=== PATIENT | male | born 1955 | race Hispanic/Latino ===

== ENCOUNTER 2021-09-07 12:13 | Inpatient (IN) | payer MEDICARE, MEDICAID ==
[2021-09-07 12:51] LABS: #Basophils 0.1 thou/uL (0.0-0.2); #Eosinphils 0.1 thou/uL (0.0-0.7); #Lymphocytes 2.2 thou/uL (1.20-3.40); #Monocytes 1.1 thou/uL (0.11-0.59); #Neutrophils 9.8 thou/uL (1.40-6.50); %Basophils 0.7 % (0.0-1.0); %Eosinophils 1.1 % (0.0-10.0); %Lymphocytes 16.3 % (21.0-51.0); %Monocytes 8.5 % (0.0-10.0); %Neutrophils 73.4 % (42.0-75.0); Hemoglobin 12.5 g/dL (14.0-18.0); Mean Corpuscular HGB CONC 32.6 g/dL (32.0-36.0); Mean Corpuscular Hemoglobin 28.2 pg (27.0-31.0); Mean Corpuscular Volume 86.4 fL (78.0-98.0); Mean Platelet Volume 8.8 fL (7.4-10.4); Platelet Count 252 thou/uL (130-400); RBC Distribution Width 12.7 % (11.5-14.5); Red Blood Cell (RBC) Count 4.42 mill/uL (4.70-6.10); White Blood Cell (WBC) Count 13.3 thou/uL (4.8-10.8)
[2021-09-07 13:08] LABS: ALT (SGPT) 11 U/L (8-55); AST (SGOT) 11 U/L (5-34); Albumin 4.1 g/dL (3.4-4.8); Alkaline Phosphatase 86 U/L (40-110); Anion Gap 18 mmol/L (10-20); BUN (Urea Nitrogen) 42 mg/dL (8.4-25.7); Bilirubin, Total 0.6 mg/dL (0.2-1.2); Calc. Creatinine Clearance 0 mL/min (70-130); Calcium 10.1 mg/dL (7.8-10.44); Carbon Dioxide 25 mmol/L (23-31); Chloride 103 mmol/L (98-107); Globulin 3.6 g/dL (2.4-3.5); Glucose 143 mg/dL (80-115); Magnesium 1.8 mg/dL (1.6-2.6); Protein, Total 7.7 g/dL (5.8-8.1); Sodium 142 mmol/L (136-145)
[2021-09-07 13:31] LABS: CKMB 2.2 ng/mL (0-6.6)
[2021-09-07] MEDS ORDERED: Nitroglycerin 2% Ointment 1 INCH/1 GM Packet ONE (15:24)
[2021-09-07 18:45] LABS: Troponin I 0.072 ng/mL (< 0.028)
[2021-09-07 20:52] VITALS: BMI 19.8
[2021-09-07 21:30] LABS: Troponin I 0.066 ng/mL (< 0.028)
[2021-09-07] MEDS ORDERED: hydrALAZINE 20 MG/ML VIAL SLOW IVP PRN (21:58)
[2021-09-07] MEDS ORDERED: Ondansetron ODT 4 MG TAB PO PRN (21:59)
[2021-09-07] MEDS ORDERED: Ondansetron PF 4 MG/2 ML Vial IVP PRN (21:59)
[2021-09-07] MEDS ORDERED: Acetaminophen 650 MG Suppository PR PRN (21:59)
[2021-09-07] MEDS ORDERED: Electrolyte Replacement Protocol 1 EACH FS SCH (22:15)
[2021-09-07] MEDS ORDERED: Magnesium 2 GM/50 ML 2 GM in Premix Bag 1 BAG IVPB SCH (22:15)
[2021-09-07] MEDS: Sodium Chloride 0.9% 1,000 ML IV SCH (23:23)
[2021-09-07 23:59] LABS: Bacteria/HPF None Seen HPF (None Seen); Bilirubin Negative (Negative); Blood, Urine 1+ (Negative); Clarity Clear (Clear); Glucose, Urine (Dipstick) Normal (Negative); Ketone, Urine Negative (Negative); Leukocyte Negative Leu/uL (Negative); Nitrite Negative (Negative); Protein, Urine (Dipstick) 100 mg/dL (Neg-Trace); Specific Gravity, Urine 1.016 (1.002-1.036); Squamous Epithelial None Seen HPF (0-3); Urobilinogen Normal mg/dL (Less than 2); WBC/HPF 0-3 HPF (0-3)
[2021-09-08 00:02] LABS: Urine Culture Reflex No No
[2021-09-08] MEDS ORDERED: Dextrose 5% in Water 1,000 ML IV PRN (01:01)
[2021-09-08] MEDS ORDERED: Dextrose 50% Abboject 50 ML SYRINGE SLOW IVP PRN (01:01)
[2021-09-08 05:07] LABS: #Eosinphils 0.2 thou/uL (0.0-0.7); #Lymphocytes 1.6 thou/uL (1.20-3.40); #Monocytes 0.7 thou/uL (0.11-0.59); #Neutrophils 6.9 thou/uL (1.40-6.50); %Basophils 0.5 % (0.0-1.0); %Eosinophils 1.6 % (0.0-10.0); %Lymphocytes 17.2 % (21.0-51.0); %Monocytes 7.4 % (0.0-10.0); %Neutrophils 73.3 % (42.0-75.0); Hemoglobin 11.2 g/dL (14.0-18.0); Mean Corpuscular HGB CONC 33.1 g/dL (32.0-36.0); Mean Corpuscular Hemoglobin 28.5 pg (27.0-31.0); Mean Corpuscular Volume 86.1 fL (78.0-98.0); Mean Platelet Volume 8.4 fL (7.4-10.4); Platelet Count 197 thou/uL (130-400); RBC Distribution Width 12.6 % (11.5-14.5); Red Blood Cell (RBC) Count 3.91 mill/uL (4.70-6.10); White Blood Cell (WBC) Count 9.4 thou/uL (4.8-10.8)
[2021-09-08 05:30] LABS: Anion Gap 14 mmol/L (10-20); BUN (Urea Nitrogen) 39 mg/dL (8.4-25.7); Calc. Creatinine Clearance 33 mL/min (70-130); Calcium 9.3 mg/dL (7.8-10.44); Carbon Dioxide 26 mmol/L (23-31); Chloride 105 mmol/L (98-107); Glucose 200 mg/dL (80-115); Potassium 3.6 mmol/L (3.5-5.1); Sodium 141 mmol/L (136-145)
[2021-09-08 07:34] LABS: Creatinine, Urine 89.08 mg/dL (63-166)
[2021-09-08] MEDS: Sodium Chloride 0.9% 1,000 ML IV SCH ×2 (10:28→12:02)
[2021-09-08 11:57] LABS: Digoxin 1.34 ng/mL (0.8-2.0)
[2021-09-08] MEDS: hydrALAZINE 20 MG/ML VIAL SLOW IVP PRN ×2 (11:58→19:33)
[2021-09-08] MEDS ORDERED: hydrALAZINE 20 MG/ML VIAL SLOW IVP SCH (13:45)
[2021-09-08 13:58] LABS: SARS-CoV-2 PCR by NAA Not Detected (NotDetected)
[2021-09-08] MEDS ORDERED: Amlodipine 5 MG TAB PO SCH (15:00)
[2021-09-08] MEDS: busPIRone HCl 10 MG TAB PO SCH ×2 (15:00→21:22)
[2021-09-08] MEDS: Artificial Tear Sol 15 ML BOT EA EYE SCH ×2 (15:01→21:22)
[2021-09-08] MEDS: HumaLOG 300 UNITS/3 ML VIAL SC PRN ×2 (18:27→21:24)
[2021-09-08] MEDS: Lantus 1000 UNITS/10 ML VIAL SC SCH (21:22)
[2021-09-08] MEDS: Acetaminophen 325 MG TAB PO PRN (21:23)
[2021-09-08] MEDS: NIFEdipine XL 60 MG TAB PO SCH (21:23)
[2021-09-09] MEDS: Sodium Chloride 0.9% 1,000 ML IV SCH ×2 (01:35→14:50)
[2021-09-09 05:35] LABS: #Eosinphils 0.2 thou/uL (0.0-0.7); #Monocytes 0.9 thou/uL (0.11-0.59); #Neutrophils 5.9 thou/uL (1.40-6.50); %Basophils 0.2 % (0.0-1.0); %Lymphocytes 22.2 % (21.0-51.0); %Monocytes 9.8 % (0.0-10.0); %Neutrophils 65.9 % (42.0-75.0); Hemoglobin 11.7 g/dL (14.0-18.0); Mean Corpuscular HGB CONC 34.3 g/dL (32.0-36.0); Mean Corpuscular Hemoglobin 30.1 pg (27.0-31.0); Mean Corpuscular Volume 87.8 fL (78.0-98.0); Mean Platelet Volume 8.6 fL (7.4-10.4); Platelet Count 182 thou/uL (130-400); RBC Distribution Width 12.9 % (11.5-14.5); Red Blood Cell (RBC) Count 3.89 mill/uL (4.70-6.10); White Blood Cell (WBC) Count 8.9 thou/uL (4.8-10.8)
[2021-09-09 06:06] LABS: Anion Gap 13 mmol/L (10-20); BUN (Urea Nitrogen) 34 mg/dL (8.4-25.7); Calc. Creatinine Clearance 39 mL/min (70-130); Calcium 9.2 mg/dL (7.8-10.44); Carbon Dioxide 24 mmol/L (23-31); Chloride 106 mmol/L (98-107); Glucose 196 mg/dL (80-115); Potassium 3.8 mmol/L (3.5-5.1); Sodium 139 mmol/L (136-145)
[2021-09-09] MEDS: HumaLOG 300 UNITS/3 ML VIAL SC PRN ×3 (06:14→20:12)
[2021-09-09] MEDS: Artificial Tear Sol 15 ML BOT EA EYE SCH ×3 (08:35→20:24)
[2021-09-09] MEDS: NIFEdipine XL 60 MG TAB PO SCH ×2 (08:35→20:11)
[2021-09-09] MEDS: Lantus 1000 UNITS/10 ML VIAL SC SCH ×2 (08:35→20:12)
[2021-09-09] MEDS: Finasteride 5 MG TAB PO SCH (08:36)
[2021-09-09] MEDS: busPIRone HCl 10 MG TAB PO SCH ×3 (08:36→20:11)
[2021-09-09] MEDS: Cholecalciferol 1,000 UNITS (25 MCG) TAB PO SCH (08:36)
[2021-09-09] MEDS ORDERED: Amlodipine 5 MG TAB PO SCH ×2 (09:00)
[2021-09-09] MEDS: Mirtazapine 15 MG Soltab PO SCH (09:25)
[2021-09-09] MEDS ORDERED: Rivaroxaban 15 MG TAB PO SCH (17:00)
[2021-09-10] MEDS ORDERED: ceFAZolin Sodium/D5W 2 GM in Premix Bag 1 BAG IVPB SCH (00:30)
[2021-09-10] MEDS: Sodium Chloride 0.9% 1,000 ML IV SCH (04:45)
[2021-09-10 05:31] LABS: #Eosinphils 0.1 thou/uL (0.0-0.7); #Lymphocytes 1.6 thou/uL (1.20-3.40); #Monocytes 0.9 thou/uL (0.11-0.59); #Neutrophils 10.1 thou/uL (1.40-6.50); %Basophils 0.3 % (0.0-1.0); %Lymphocytes 12.4 % (21.0-51.0); %Neutrophils 79.3 % (42.0-75.0); Hemoglobin 11.8 g/dL (14.0-18.0); Mean Corpuscular HGB CONC 31.1 g/dL (32.0-36.0); Mean Corpuscular Hemoglobin 26.8 pg (27.0-31.0); Mean Corpuscular Volume 86.2 fL (78.0-98.0); Mean Platelet Volume 8.5 fL (7.4-10.4); Platelet Count 235 thou/uL (130-400); Red Blood Cell (RBC) Count 4.42 mill/uL (4.70-6.10); White Blood Cell (WBC) Count 12.8 thou/uL (4.8-10.8)
[2021-09-10 05:51] LABS: Anion Gap 16 mmol/L (10-20); BUN (Urea Nitrogen) 28 mg/dL (8.4-25.7); Calc. Creatinine Clearance 40 mL/min (70-130); Calcium 9.5 mg/dL (7.8-10.44); Carbon Dioxide 21 mmol/L (23-31); Chloride 108 mmol/L (98-107); Glucose 294 mg/dL (80-115); Potassium 3.9 mmol/L (3.5-5.1); Sodium 141 mmol/L (136-145)
[2021-09-10] MEDS ORDERED: ceFAZolin 2 GM/DEX 5% 100 ML BAG ONE (08:15)
[2021-09-10] MEDS ORDERED: CEFAZOLIN 1 GM VIAL ONE (08:15)
[2021-09-10] MEDS ORDERED: Gentamicin 80 MG/2 ML VIAL ONE (08:15)
[2021-09-10] MEDS ORDERED: Fentanyl 100 MCG/2 ML VIAL ONE (08:29)
[2021-09-10] MEDS ORDERED: Midazolam HCl 2 mg/2 ml Vial ONE (08:30)
[2021-09-10] MEDS: Artificial Tear Sol 15 ML BOT EA EYE SCH ×2 (09:46→15:11)
[2021-09-10] MEDS: NIFEdipine XL 60 MG TAB PO SCH ×2 (09:46→23:12)
[2021-09-10] MEDS: Finasteride 5 MG TAB PO SCH (09:47)
[2021-09-10] MEDS: Sodium Bicarbonate Tab 325 MG TAB PO SCH ×2 (09:48→23:12)
[2021-09-10] MEDS: Cholecalciferol 1,000 UNITS (25 MCG) TAB PO SCH (09:50)
[2021-09-10] MEDS: busPIRone HCl 10 MG TAB PO SCH ×3 (09:54→23:12)
[2021-09-10] MEDS: Mirtazapine 15 MG Soltab PO SCH (09:54)
[2021-09-10] MEDS: Lantus 1000 UNITS/10 ML VIAL SC SCH (10:14)
[2021-09-10] MEDS: HumaLOG 300 UNITS/3 ML VIAL SC PRN (10:50)
[2021-09-10] MEDS: hydrALAZINE 20 MG/ML VIAL SLOW IVP PRN (10:53)
[2021-09-10] MEDS: Acetaminophen 325 MG TAB PO PRN (12:17)
[2021-09-10] MEDS ORDERED: cloNIDine 0.1 MG TAB PO PRN ×2 (13:03→13:04)
[2021-09-10] MEDS: Metoprolol Tartrate 50 MG TAB PO SCH (18:04)
[2021-09-11] MEDS: Lantus 1000 UNITS/10 ML VIAL SC SCH ×3 (00:03→20:54)
[2021-09-11] MEDS: Artificial Tear Sol 15 ML BOT EA EYE SCH ×4 (00:04→20:55)
[2021-09-11] MEDS ORDERED: Cefepime 2 GM in Sodium Chloride 0.9% 100 ML IVPB SCH (01:00)
[2021-09-11 05:51] LABS: #Lymphocytes 1.4 thou/uL (1.20-3.40); #Monocytes 1.1 thou/uL (0.11-0.59); #Neutrophils 10.8 thou/uL (1.40-6.50); %Basophils 0.3 % (0.0-1.0); %Eosinophils 0.3 % (0.0-10.0); %Lymphocytes 10.6 % (21.0-51.0); %Monocytes 8.3 % (0.0-10.0); %Neutrophils 80.5 % (42.0-75.0); Hemoglobin 11.6 g/dL (14.0-18.0); Mean Corpuscular HGB CONC 32.1 g/dL (32.0-36.0); Mean Corpuscular Hemoglobin 27.9 pg (27.0-31.0); Mean Corpuscular Volume 86.9 fL (78.0-98.0); Mean Platelet Volume 8.6 fL (7.4-10.4); Platelet Count 204 thou/uL (130-400); RBC Distribution Width 13.2 % (11.5-14.5); Red Blood Cell (RBC) Count 4.16 mill/uL (4.70-6.10); White Blood Cell (WBC) Count 13.4 thou/uL (4.8-10.8)
[2021-09-11 06:19] LABS: Anion Gap 12 mmol/L (10-20); BUN (Urea Nitrogen) 27 mg/dL (8.4-25.7); Calc. Creatinine Clearance 39 mL/min (70-130); Calcium 9.1 mg/dL (7.8-10.44); Carbon Dioxide 24 mmol/L (23-31); Chloride 108 mmol/L (98-107); Glucose 181 mg/dL (80-115); Potassium 3.6 mmol/L (3.5-5.1); Sodium 140 mmol/L (136-145)
[2021-09-11] MEDS: HumaLOG 300 UNITS/3 ML VIAL SC PRN ×3 (06:24→20:55)
[2021-09-11] MEDS: Rivaroxaban 10 MG TAB PO SCH (06:24)
[2021-09-11] MEDS: Cefepime 2 GM in Sodium Chloride 0.9% 100 ML IVPB SCH ×2 (08:53→20:41)
[2021-09-11] MEDS: Mirtazapine 15 MG Soltab PO SCH (08:54)
[2021-09-11] MEDS: Sodium Bicarbonate Tab 325 MG TAB PO SCH ×2 (08:54→20:54)
[2021-09-11] MEDS: NIFEdipine XL 60 MG TAB PO SCH ×2 (08:54→20:54)
[2021-09-11] MEDS: Cholecalciferol 1,000 UNITS (25 MCG) TAB PO SCH (08:54)
[2021-09-11] MEDS: Finasteride 5 MG TAB PO SCH (08:55)
[2021-09-11] MEDS: Metoprolol Tartrate 50 MG TAB PO SCH ×2 (08:55→20:42)
[2021-09-11] MEDS: busPIRone HCl 10 MG TAB PO SCH ×3 (08:55→20:42)
[2021-09-11] MEDS: Acetaminophen 325 MG TAB PO PRN (11:33)
[2021-09-12 05:24] LABS: #Eosinphils 0.1 thou/uL (0.0-0.7); #Lymphocytes 1.9 thou/uL (1.20-3.40); #Monocytes 0.9 thou/uL (0.11-0.59); #Neutrophils 7.9 thou/uL (1.40-6.50); %Basophils 0.2 % (0.0-1.0); %Eosinophils 1.1 % (0.0-10.0); %Lymphocytes 17.5 % (21.0-51.0); %Monocytes 8.6 % (0.0-10.0); %Neutrophils 72.6 % (42.0-75.0); Hemoglobin 9.3 g/dL (14.0-18.0); Mean Corpuscular HGB CONC 31.9 g/dL (32.0-36.0); Mean Corpuscular Hemoglobin 27.9 pg (27.0-31.0); Mean Corpuscular Volume 87.6 fL (78.0-98.0); Mean Platelet Volume 8.2 fL (7.4-10.4); Platelet Count 159 thou/uL (130-400); RBC Distribution Width 13.1 % (11.5-14.5); Red Blood Cell (RBC) Count 3.33 mill/uL (4.70-6.10); White Blood Cell (WBC) Count 10.8 thou/uL (4.8-10.8)
[2021-09-12 05:49] LABS: Anion Gap 12 mmol/L (10-20); BUN (Urea Nitrogen) 34 mg/dL (8.4-25.7); Calc. Creatinine Clearance 32 mL/min (70-130); Calcium 8.7 mg/dL (7.8-10.44); Carbon Dioxide 25 mmol/L (23-31); Chloride 107 mmol/L (98-107); Glucose 124 mg/dL (80-115); Potassium 3.2 mmol/L (3.5-5.1); Sodium 141 mmol/L (136-145)
[2021-09-12] MEDS: Rivaroxaban 10 MG TAB PO SCH (06:24)
[2021-09-12] MEDS ORDERED: Potassium Chloride 20 MEQ TAB PO SCH (07:00)
[2021-09-12] MEDS: Cefepime 2 GM in Sodium Chloride 0.9% 100 ML IVPB SCH ×2 (08:53→21:19)
[2021-09-12] MEDS: Artificial Tear Sol 15 ML BOT EA EYE SCH ×3 (08:53→21:18)
[2021-09-12] MEDS: Lantus 1000 UNITS/10 ML VIAL SC SCH ×2 (08:54→21:19)
[2021-09-12] MEDS: NIFEdipine XL 60 MG TAB PO SCH ×2 (08:58→21:17)
[2021-09-12] MEDS: Mirtazapine 15 MG Soltab PO SCH (08:59)
[2021-09-12] MEDS: Metoprolol Tartrate 50 MG TAB PO SCH ×2 (09:00→21:17)
[2021-09-12] MEDS: Sodium Bicarbonate Tab 325 MG TAB PO SCH ×2 (09:01→21:18)
[2021-09-12] MEDS: Cholecalciferol 1,000 UNITS (25 MCG) TAB PO SCH (09:01)
[2021-09-12] MEDS: busPIRone HCl 10 MG TAB PO SCH ×3 (09:01→21:18)
[2021-09-12] MEDS: Finasteride 5 MG TAB PO SCH (09:02)
[2021-09-12 10:08] LABS: Creatinine, Urine 187.95 mg/dL (63-166)
[2021-09-12] MEDS: HumaLOG 300 UNITS/3 ML VIAL SC PRN ×3 (11:45→21:37)
[2021-09-12] MEDS ORDERED: Lactated Ringer's 1,000 ML IV SCH (12:00)
[2021-09-12 17:38] LABS: Metanephrine,Plasma <10.0 pg/mL (0.0-88.0); Normetanephrine,Pl 47.6 pg/mL (0.0-285.2)
[2021-09-12 21:31] LABS: Actual Bicarbonate (HCO3a) 24.1 mEq/L (22-28); Base Excess (BEa) 2.3 mEq/L (-2.0 to +3.0); CO2 Tension 29.8 mmHg (35.0-45.0); Calcium, Ionized (arterial) 1.13 mmol/L (1.12-1.30); Carboxyhemoglobin (COHb) 0.8 gm% (0.0-3.0); Hemoglobin (Hb) 14.1 g/dL (14.0-18.0); Potassium - ABG Lab 3.83 mmol/L (3.70-5.30); pH, Arterial 7.53 (7.35-7.45)
[2021-09-12 21:31] LABS: #Eosinphils 0.2 thou/uL (0.0-0.7); #Lymphocytes 1.1 thou/uL (1.20-3.40); #Monocytes 0.8 thou/uL (0.11-0.59); #Neutrophils 10.8 thou/uL (1.40-6.50); %Basophils 0.3 % (0.0-1.0); %Eosinophils 1.5 % (0.0-10.0); %Lymphocytes 8.2 % (21.0-51.0); %Monocytes 6.5 % (0.0-10.0); %Neutrophils 83.5 % (42.0-75.0); Hemoglobin 10.2 g/dL (14.0-18.0); Mean Corpuscular HGB CONC 31.8 g/dL (32.0-36.0); Mean Corpuscular Hemoglobin 28.1 pg (27.0-31.0); Mean Corpuscular Volume 88.3 fL (78.0-98.0); Mean Platelet Volume 8.3 fL (7.4-10.4); Platelet Count 172 thou/uL (130-400); RBC Distribution Width 12.9 % (11.5-14.5); Red Blood Cell (RBC) Count 3.62 mill/uL (4.70-6.10); White Blood Cell (WBC) Count 12.9 thou/uL (4.8-10.8)
[2021-09-12 21:34] LABS: O2 Tension (PaO2), arterial 51.7 mmHg (> 80.0)
[2021-09-12 21:36] LABS: Puncture Site RRA
[2021-09-12 21:50] LABS: Anion Gap 13 mmol/L (10-20); BUN (Urea Nitrogen) 42 mg/dL (8.4-25.7); Calc. Creatinine Clearance 34 mL/min (70-130); Calcium 8.7 mg/dL (7.8-10.44); Carbon Dioxide 23 mmol/L (23-31); Chloride 104 mmol/L (98-107); Glucose 282 mg/dL (80-115); Potassium 3.9 mmol/L (3.5-5.1); Sodium 136 mmol/L (136-145)
[2021-09-12] MEDS ORDERED: methylPREDNISolone Sod Succ/PF 125 MG/2 ML VIAL IVP SCH (22:30)
[2021-09-13] MEDS: Rivaroxaban 10 MG TAB PO SCH (06:52)
[2021-09-13] MEDS: HumaLOG 300 UNITS/3 ML VIAL SC PRN ×2 (06:53→18:56)
[2021-09-13] MEDS: Cefepime 2 GM in Sodium Chloride 0.9% 100 ML IVPB SCH ×2 (09:55→21:13)
[2021-09-13] MEDS: Artificial Tear Sol 15 ML BOT EA EYE SCH ×3 (09:57→21:13)
[2021-09-13] MEDS: NIFEdipine XL 60 MG TAB PO SCH ×2 (09:58→21:13)
[2021-09-13] MEDS: Cholecalciferol 1,000 UNITS (25 MCG) TAB PO SCH (09:58)
[2021-09-13] MEDS: Metoprolol Tartrate 50 MG TAB PO SCH ×2 (09:58→21:13)
[2021-09-13] MEDS: busPIRone HCl 10 MG TAB PO SCH ×3 (09:58→21:13)
[2021-09-13] MEDS: Finasteride 5 MG TAB PO SCH (09:58)
[2021-09-13] MEDS: Lantus 1000 UNITS/10 ML VIAL SC SCH ×2 (09:59→21:14)
[2021-09-13] MEDS: Mirtazapine 15 MG Soltab PO SCH (09:59)
[2021-09-13] MEDS: Sodium Bicarbonate Tab 325 MG TAB PO SCH ×2 (09:59→21:14)
[2021-09-13] MEDS ORDERED: Furosemide 40 MG/4 ML VIAL IVP SCH (14:03)
[2021-09-13 15:04] LABS: Anion Gap 17 mmol/L (10-20); BUN (Urea Nitrogen) 53 mg/dL (8.4-25.7); Calc. Creatinine Clearance 32 mL/min (70-130); Calcium 9.1 mg/dL (7.8-10.44); Carbon Dioxide 20 mmol/L (23-31); Chloride 104 mmol/L (98-107); Glucose 319 mg/dL (80-115); Sodium 137 mmol/L (136-145)
[2021-09-13 18:12] LABS: Metanephrine,Ur 27 ug/L (Undefined); Metanephrines Total-24H 33 ug/24 hr (58-276); Normetanephrine,Ur 133 ug/L (Undefined); Normetanephrines-24H U 163 ug/24 hr (156-729)
[2021-09-14 03:57] LABS: #Lymphocytes 1.2 thou/uL (1.20-3.40); #Monocytes 0.9 thou/uL (0.11-0.59); #Neutrophils 9.3 thou/uL (1.40-6.50); %Basophils 0.2 % (0.0-1.0); %Eosinophils 0.2 % (0.0-10.0); %Lymphocytes 10.3 % (21.0-51.0); %Monocytes 7.8 % (0.0-10.0); %Neutrophils 81.5 % (42.0-75.0); Hemoglobin 10.1 g/dL (14.0-18.0); Mean Corpuscular HGB CONC 32.7 g/dL (32.0-36.0); Mean Corpuscular Hemoglobin 28.8 pg (27.0-31.0); Mean Corpuscular Volume 88.1 fL (78.0-98.0); Mean Platelet Volume 8.9 fL (7.4-10.4); Platelet Count 201 thou/uL (130-400); RBC Distribution Width 12.7 % (11.5-14.5); Red Blood Cell (RBC) Count 3.51 mill/uL (4.70-6.10); White Blood Cell (WBC) Count 11.4 thou/uL (4.8-10.8)
[2021-09-14 04:38] LABS: Anion Gap 14 mmol/L (10-20); BUN (Urea Nitrogen) 56 mg/dL (8.4-25.7); Calc. Creatinine Clearance 35 mL/min (70-130); Carbon Dioxide 24 mmol/L (23-31); Chloride 104 mmol/L (98-107); Glucose 217 mg/dL (80-115); Potassium 3.6 mmol/L (3.5-5.1); Sodium 138 mmol/L (136-145)
[2021-09-14] MEDS: Rivaroxaban 10 MG TAB PO SCH (06:39)
[2021-09-14] MEDS ORDERED: Furosemide 40 MG/4 ML VIAL SLOW IVP SCH (08:15)
[2021-09-14] MEDS: Artificial Tear Sol 15 ML BOT EA EYE SCH ×3 (09:29→21:10)
[2021-09-14] MEDS: Cefepime 2 GM in Sodium Chloride 0.9% 100 ML IVPB SCH ×2 (09:29→21:10)
[2021-09-14] MEDS: Lantus 1000 UNITS/10 ML VIAL SC SCH ×2 (09:30→21:11)
[2021-09-14 11:23] LABS: SARS-CoV-2 PCR by NAA Not Detected (NotDetected)
[2021-09-14] MEDS: Metoprolol Tartrate 50 MG TAB PO SCH ×2 (11:25→21:10)
[2021-09-14] MEDS: Cholecalciferol 1,000 UNITS (25 MCG) TAB PO SCH (11:26)
[2021-09-14] MEDS: NIFEdipine XL 60 MG TAB PO SCH ×2 (11:27→21:11)
[2021-09-14] MEDS: busPIRone HCl 10 MG TAB PO SCH ×3 (11:27→21:11)
[2021-09-14] MEDS: Sodium Bicarbonate Tab 325 MG TAB PO SCH ×2 (11:27→21:11)
[2021-09-14] MEDS: Mirtazapine 15 MG Soltab PO SCH (12:41)
[2021-09-14] MEDS: Finasteride 5 MG TAB PO SCH (12:41)
[2021-09-15] MEDS: Rivaroxaban 10 MG TAB PO SCH (05:05)
[2021-09-15] MEDS: HumaLOG 300 UNITS/3 ML VIAL SC PRN (06:25)
[2021-09-15 06:56] LABS: Albumin 3.1 g/dL (3.4-4.8); Anion Gap 12 mmol/L (10-20); BUN (Urea Nitrogen) 54 mg/dL (8.4-25.7); BUN/Creatinine Ratio 27.98; Calc. Creatinine Clearance 38 mL/min (70-130); Calcium 8.9 mg/dL (7.8-10.44); Carbon Dioxide 28 mmol/L (23-31); Chloride 103 mmol/L (98-107); Glucose 219 mg/dL (80-115); Phosphorus 3.7 mg/dL (2.3-4.7); Potassium 3.6 mmol/L (3.5-5.1); Sodium 139 mmol/L (136-145)
[2021-09-15] MEDS: Mirtazapine 15 MG Soltab PO SCH (09:12)
[2021-09-15] MEDS: NIFEdipine XL 60 MG TAB PO SCH ×2 (09:12→21:49)
[2021-09-15] MEDS: Cholecalciferol 1,000 UNITS (25 MCG) TAB PO SCH (09:12)
[2021-09-15] MEDS: Finasteride 5 MG TAB PO SCH (09:12)
[2021-09-15] MEDS: Artificial Tear Sol 15 ML BOT EA EYE SCH ×3 (09:12→21:49)
[2021-09-15] MEDS: Metoprolol Tartrate 50 MG TAB PO SCH ×2 (09:12→21:49)
[2021-09-15] MEDS: busPIRone HCl 10 MG TAB PO SCH ×3 (09:13→21:49)
[2021-09-15] MEDS: Sodium Bicarbonate Tab 325 MG TAB PO SCH ×2 (09:13→21:49)
[2021-09-15] MEDS: Cefepime 2 GM in Sodium Chloride 0.9% 100 ML IVPB SCH ×2 (09:13→21:48)
[2021-09-15] MEDS: Lantus 1000 UNITS/10 ML VIAL SC SCH ×2 (09:14→21:42)
[2021-09-15 09:39] LABS: 5 HIAA,Urine 2.4 mg/L (Undefined); 5 HIAA-24H Urine 2.9 mg/24 hr (0.0-14.9)
[2021-09-15] MEDS ORDERED: Furosemide 40 MG/4 ML VIAL SLOW IVP SCH (22:00)
[2021-09-16 05:09] LABS: #Eosinphils 0.3 thou/uL (0.0-0.7); #Lymphocytes 1.6 thou/uL (1.20-3.40); #Monocytes 0.8 thou/uL (0.11-0.59); #Neutrophils 5.4 thou/uL (1.40-6.50); %Basophils 0.5 % (0.0-1.0); %Eosinophils 3.6 % (0.0-10.0); %Lymphocytes 19.3 % (21.0-51.0); %Monocytes 9.9 % (0.0-10.0); %Neutrophils 66.6 % (42.0-75.0); Hemoglobin 10.1 g/dL (14.0-18.0); Mean Corpuscular HGB CONC 31.9 g/dL (32.0-36.0); Mean Corpuscular Hemoglobin 28.1 pg (27.0-31.0); Mean Platelet Volume 8.5 fL (7.4-10.4); Platelet Count 230 thou/uL (130-400); RBC Distribution Width 12.9 % (11.5-14.5); Red Blood Cell (RBC) Count 3.62 mill/uL (4.70-6.10)
[2021-09-16] MEDS: Rivaroxaban 10 MG TAB PO SCH (05:13)
[2021-09-16 05:28] LABS: Albumin 3.1 g/dL (3.4-4.8); Anion Gap 13 mmol/L (10-20); BUN (Urea Nitrogen) 48 mg/dL (8.4-25.7); BUN/Creatinine Ratio 24.12; Calc. Creatinine Clearance 37 mL/min (70-130); Carbon Dioxide 29 mmol/L (23-31); Chloride 103 mmol/L (98-107); Glucose 269 mg/dL (80-115); Phosphorus 3.5 mg/dL (2.3-4.7); Potassium 3.6 mmol/L (3.5-5.1); Sodium 141 mmol/L (136-145)
[2021-09-16] MEDS: HumaLOG 300 UNITS/3 ML VIAL SC PRN ×2 (05:42→18:15)
[2021-09-16] MEDS: Artificial Tear Sol 15 ML BOT EA EYE SCH ×3 (09:49→20:28)
[2021-09-16] MEDS: Lantus 1000 UNITS/10 ML VIAL SC SCH ×2 (09:50→20:20)
[2021-09-16] MEDS: NIFEdipine XL 60 MG TAB PO SCH ×2 (09:50→20:28)
[2021-09-16] MEDS: Metoprolol Tartrate 50 MG TAB PO SCH ×2 (09:51→20:28)
[2021-09-16] MEDS: Cefdinir 300 MG CAP PO SCH ×2 (09:51→20:28)
[2021-09-16] MEDS: Sodium Bicarbonate Tab 325 MG TAB PO SCH ×2 (09:51→20:28)
[2021-09-16] MEDS: Mirtazapine 15 MG Soltab PO SCH (09:51)
[2021-09-16] MEDS: busPIRone HCl 10 MG TAB PO SCH ×3 (09:51→20:28)
[2021-09-16] MEDS: Cholecalciferol 1,000 UNITS (25 MCG) TAB PO SCH (09:51)
[2021-09-16] MEDS: Finasteride 5 MG TAB PO SCH (09:52)
[2021-09-16 14:16] LABS: SARS-CoV-2 PCR by NAA Not Detected (NotDetected)
[2021-09-17 05:06] LABS: Albumin 3.2 g/dL (3.4-4.8); Anion Gap 11 mmol/L (10-20); BUN (Urea Nitrogen) 42 mg/dL (8.4-25.7); Calc. Creatinine Clearance 40 mL/min (70-130); Calcium 9.2 mg/dL (7.8-10.44); Carbon Dioxide 28 mmol/L (23-31); Chloride 104 mmol/L (98-107); Glucose 101 mg/dL (80-115); Phosphorus 3.1 mg/dL (2.3-4.7); Potassium 3.4 mmol/L (3.5-5.1); Sodium 140 mmol/L (136-145)
[2021-09-17] MEDS: Rivaroxaban 10 MG TAB PO SCH (05:47)
[2021-09-17] MEDS ORDERED: Potassium Chloride 20 MEQ TAB PO SCH ×2 (06:00→09:15)
[2021-09-17] MEDS: Cholecalciferol 1,000 UNITS (25 MCG) TAB PO SCH (09:02)
[2021-09-17] MEDS: Sodium Bicarbonate Tab 325 MG TAB PO SCH (09:02)
[2021-09-17] MEDS: Metoprolol Tartrate 50 MG TAB PO SCH (09:03)
[2021-09-17] MEDS: Finasteride 5 MG TAB PO SCH (09:03)
[2021-09-17] MEDS: Mirtazapine 15 MG Soltab PO SCH (09:03)
[2021-09-17] MEDS: Cefdinir 300 MG CAP PO SCH (09:03)
[2021-09-17] MEDS: NIFEdipine XL 60 MG TAB PO SCH (09:03)
[2021-09-17] MEDS: busPIRone HCl 10 MG TAB PO SCH (09:03)
[2021-09-17] MEDS: Artificial Tear Sol 15 ML BOT EA EYE SCH (09:04)
[2021-09-17] MEDS: Lantus 1000 UNITS/10 ML VIAL SC SCH (09:04)
[2021-09-17 13:06] VITALS: BP 168/84; TEMP 98.2
[2021-09-17 13:37] LABS: Renin Activity 0.304 ng/mL/hr (0.167-5.380)
== END 2021-09-17 13:00 | DRG 242 ==
LOC: ERS 12:13 → 2SW 17:43 → OBSVTOIN 09-08 11:01 → IMCU/EMU 09-12 23:12 → 2NO 09-14 19:42
PROVIDERS: ADMIT Family Medicine; ATTEND Internal Medicine
PROC: 0JH604Z Insertion of Pacemaker, Single Chamber into Chest Subcutaneous Tissue and Fascia, Open Approach (ICD-10-PCS; principal; 2021-09-11)
PROC: 02HK0JZ Insertion of Pacemaker Lead into Right Ventricle, Open Approach (ICD-10-PCS; 2021-09-11)
DX: I49.5 Sick sinus syndrome (principal); J18.9 Pneumonia, unspecified organism; A41.9 Sepsis, unspecified organism; J96.01 Acute respiratory failure with hypoxia; N17.9 Acute kidney failure, unspecified; I48.21 Permanent atrial fibrillation; I13.0 Hypertensive heart and chronic kidney disease with heart failure and stage 1 through stage 4 chronic kidney disease, or unspecified chronic kidney disease; E87.2 Acidosis; I50.32 Chronic diastolic (congestive) heart failure; Z20.822 Contact with and (suspected) exposure to COVID-19; F01.50 Vascular dementia, unspecified severity, without behavioral disturbance, psychotic disturbance, mood disturbance, and anxiety; E78.5 Hyperlipidemia, unspecified; K21.9 Gastro-esophageal reflux disease without esophagitis; E11.22 Type 2 diabetes mellitus with diabetic chronic kidney disease; F32.A Depression, unspecified; F41.9 Anxiety disorder, unspecified; N18.30 Chronic kidney disease, stage 3 unspecified; I16.0 Hypertensive urgency; D63.1 Anemia in chronic kidney disease; E87.6 Hypokalemia; Z79.899 Other long term (current) drug therapy; Z79.01 Long term (current) use of anticoagulants; Z79.4 Long term (current) use of insulin
CPT/HCPCS: 33207; 36415; 36416; 36600; 71045; 74230; 76770; 80048; 80053; 80069; 80162; 81001; 82088; 82550; 82553; 82570; 82805; 83497; 83735; 83835; 83880; 84145; 84156; 84244; 84300; 84443; 84484; 84540; 85025; 87040; 93005; 93010; 93306; 93798; 93975; 94640; 96365; 99152; C1785; C1898; G0378; J0360; J0690; J0692; J1580; J1815; J1940; J2250; J2930; J3010; J3475; J3490; J7050; J7120; J7620; U0003; U0005

== ENCOUNTER 2022-04-08 16:32 | Inpatient (IN) | payer MEDICARE, MEDICAID ==
[2022-04-08 17:37] LABS: #Lymphocytes 1.1 thou/uL (1.20-3.40); #Monocytes 1.4 thou/uL (0.11-0.59); #Neutrophils 12.7 thou/uL (1.40-6.50); %Basophils 0.1 % (0.0-1.0); %Eosinophils 0.1 % (0.0-10.0); %Lymphocytes 7.1 % (21.0-51.0); %Monocytes 9.1 % (0.0-10.0); %Neutrophils 83.6 % (42.0-75.0); Mean Corpuscular HGB CONC 30.4 g/dL (32.0-36.0); Mean Corpuscular Hemoglobin 23.2 pg (27.0-31.0); Mean Corpuscular Volume 76.4 fL (78.0-98.0); Platelet Count 160 thou/uL (130-400); RBC Distribution Width 16.7 % (11.5-14.5); Red Blood Cell (RBC) Count 5.58 mill/uL (4.70-6.10); White Blood Cell (WBC) Count 15.2 thou/uL (4.8-10.8)
[2022-04-08 17:54] LABS: INR-International Normal Ratio 1.2; PTT 23.9 sec (22.9-36.1); Prothrombin Time 15.7 sec (12.0-14.7)
[2022-04-08] MEDS ORDERED: cefTRIAXone\\ROCEPHIN 1 GM VIAL ONE (18:05)
[2022-04-08 18:10] LABS: ALT (SGPT) 41 U/L (8-55); AST (SGOT) 34 U/L (5-34); Albumin 4.1 g/dL (3.4-4.8); Alkaline Phosphatase 104 U/L (40-110); Anion Gap 17 mmol/L (10-20); BUN (Urea Nitrogen) 39 mg/dL (8.4-25.7); Bilirubin, Total 0.8 mg/dL (0.2-1.2); CK (CPK) 309 U/L (30-200); Calc. Creatinine Clearance 0 mL/min (70-130); Calcium 9.8 mg/dL (7.8-10.44); Carbon Dioxide 22 mmol/L (23-31); Chloride 105 mmol/L (98-107); Estimated GFR 32; Globulin 3.9 g/dL (2.4-3.5); Glucose 219 mg/dL (80-115); Lipase 35 U/L (8-78); Potassium 4.1 mmol/L (3.5-5.1); Sodium 140 mmol/L (136-145)
[2022-04-08] MEDS ORDERED: Azithromycin 500 MG VIAL ONE (18:24)
[2022-04-08 18:27] LABS: CKMB 1.6 ng/mL (0-6.6)
[2022-04-08 18:48] LABS: Bacteria/HPF None Seen HPF (None Seen); Bilirubin Negative (Negative); Blood, Urine 1+ (Negative); Clarity Clear (Clear); Glucose, Urine (Dipstick) 200 mg/dL (Negative); Ketone, Urine Negative (Negative); Leukocyte Negative Leu/uL (Negative); Nitrite Negative (Negative); Protein, Urine (Dipstick) 200 mg/dL (Neg-Trace); RBC/HPF 0-3 HPF (0-3); Specific Gravity, Urine 1.021 (1.002-1.036); Squamous Epithelial None Seen HPF (0-3); Urobilinogen Normal mg/dL (Less than 2); WBC/HPF 0-3 HPF (0-3); pH, Urine 5.5 (5.0-9.0)
[2022-04-08] MEDS ORDERED: Dexamethasone 10 MG/ML VIAL ONE (20:04)
[2022-04-08] MEDS ORDERED: Aspirin 325 MG TAB ONE (21:27)
[2022-04-08 21:30] LABS: Troponin I 0.046 ng/mL (< 0.028)
[2022-04-08] MEDS ORDERED: Ondansetron ODT 4 MG TAB SL PRN (22:00)
[2022-04-08] MEDS ORDERED: Ondansetron PF 4 MG/2 ML Vial IVP PRN (22:00)
[2022-04-08 23:09] VITALS: BMI 26.5
[2022-04-08 23:36] LABS: Troponin I 0.051 ng/mL (< 0.028)
[2022-04-09] MEDS ORDERED: Acetaminophen 325 MG TAB PO PRN (00:58)
[2022-04-09] MEDS ORDERED: Dextrose 50% Abboject 50 ML SYRINGE SLOW IVP PRN (01:00)
[2022-04-09] MEDS ORDERED: Dextrose 5% in Water 1,000 ML IV PRN (01:00)
[2022-04-09] MEDS ORDERED: hydrALAZINE 10 MG TAB PO PRN (01:01)
[2022-04-09] MEDS ORDERED: GUAIFENESIN SF SOLN 200 MG/10 ML UDCUP PO PRN (01:01)
[2022-04-09 03:58] LABS: #Lymphocytes 0.6 thou/uL (1.20-3.40); #Monocytes 0.3 thou/uL (0.11-0.59); #Neutrophils 8.8 thou/uL (1.40-6.50); %Basophils 0.1 % (0.0-1.0); %Eosinophils 0.1 % (0.0-10.0); %Monocytes 3.3 % (0.0-10.0); %Neutrophils 90.5 % (42.0-75.0); Hemoglobin 12.3 g/dL (14.0-18.0); Mean Corpuscular HGB CONC 31.1 g/dL (32.0-36.0); Mean Corpuscular Volume 76.9 fL (78.0-98.0); Mean Platelet Volume 10.8 fL (7.4-10.4); Platelet Count 156 thou/uL (130-400); RBC Distribution Width 16.6 % (11.5-14.5); Red Blood Cell (RBC) Count 5.15 mill/uL (4.70-6.10); White Blood Cell (WBC) Count 9.7 thou/uL (4.8-10.8)
[2022-04-09 04:19] LABS: Anion Gap 17 mmol/L (10-20); BUN (Urea Nitrogen) 43 mg/dL (8.4-25.7); CRP (Inflammatory) 18.44 mg/dL (= or < 0.5); Calc. Creatinine Clearance 40 mL/min (70-130); Calcium 9.7 mg/dL (7.8-10.44); Carbon Dioxide 21 mmol/L (23-31); Chloride 107 mmol/L (98-107); Estimated GFR 35; Glucose 289 mg/dL (80-115); Sodium 141 mmol/L (136-145)
[2022-04-09] MEDS: HumaLOG 300 UNITS/3 ML VIAL SC PRN ×4 (06:28→22:12)
[2022-04-09] MEDS: Aspirin 81 mg Enteric Coated Tablet PO SCH (10:13)
[2022-04-09] MEDS: busPIRone HCl 10 MG TAB PO SCH ×3 (10:13→22:10)
[2022-04-09] MEDS: Zinc Sulfate 220 MG CAP PO SCH (10:13)
[2022-04-09] MEDS: Artificial Tear Sol 15 ML BOT L EYE SCH ×3 (10:13→22:10)
[2022-04-09] MEDS: Ascorbic Acid 500 mg Chewable Tablet PO SCH (10:13)
[2022-04-09] MEDS: NIFEdipine XL 30 MG TAB PO SCH ×2 (10:14→22:10)
[2022-04-09] MEDS: Metoprolol Tartrate 100 MG TAB PO SCH ×2 (10:14→22:10)
[2022-04-09] MEDS: Finasteride 5 MG TAB PO SCH (10:14)
[2022-04-09] MEDS: Cholecalciferol 1,000 UNITS (25 MCG) TAB PO SCH (10:14)
[2022-04-09] MEDS: Empagliflozin 25 MG TAB PO SCH (10:47)
[2022-04-09] MEDS: Dexamethasone 10 MG/ML VIAL SLOW IVP SCH (10:47)
[2022-04-09] MEDS: Alogliptin 25 MG TAB PO SCH (10:48)
[2022-04-09] MEDS: Rivaroxaban 15 MG TAB PO SCH (17:16)
[2022-04-09] MEDS: Atorvastatin Calcium 40 MG TAB PO SCH (22:10)
[2022-04-10 04:29] LABS: #Lymphocytes 0.9 thou/uL (1.20-3.40); #Neutrophils 10.6 thou/uL (1.40-6.50); %Eosinophils 0.1 % (0.0-10.0); %Monocytes 7.8 % (0.0-10.0); %Neutrophils 85.2 % (42.0-75.0); Hemoglobin 12.4 g/dL (14.0-18.0); Mean Corpuscular HGB CONC 30.4 g/dL (32.0-36.0); Mean Corpuscular Hemoglobin 23.6 pg (27.0-31.0); Mean Corpuscular Volume 77.7 fL (78.0-98.0); Mean Platelet Volume 10.8 fL (7.4-10.4); Platelet Count 197 thou/uL (130-400); RBC Distribution Width 16.6 % (11.5-14.5); Red Blood Cell (RBC) Count 5.24 mill/uL (4.70-6.10); White Blood Cell (WBC) Count 12.5 thou/uL (4.8-10.8)
[2022-04-10 04:49] LABS: Anion Gap 19 mmol/L (10-20); BUN (Urea Nitrogen) 58 mg/dL (8.4-25.7); CRP (Inflammatory) 11.92 mg/dL (= or < 0.5); Calc. Creatinine Clearance 36 mL/min (70-130); Calcium 9.9 mg/dL (7.8-10.44); Carbon Dioxide 24 mmol/L (23-31); Chloride 101 mmol/L (98-107); Estimated GFR 32; Glucose 369 mg/dL (80-115); Potassium 4.1 mmol/L (3.5-5.1); Sodium 140 mmol/L (136-145)
[2022-04-10] MEDS: HumaLOG 300 UNITS/3 ML VIAL SC PRN ×4 (07:30→22:38)
[2022-04-10] MEDS ORDERED: Insulin Glargine 30 UNITS/0.3 ML VIAL SC SCH ×2 (09:00→11:56)
[2022-04-10] MEDS: Cholecalciferol 1,000 UNITS (25 MCG) TAB PO SCH (10:48)
[2022-04-10] MEDS: Ascorbic Acid 500 mg Chewable Tablet PO SCH (10:52)
[2022-04-10] MEDS: Metoprolol Tartrate 100 MG TAB PO SCH ×2 (10:54→22:37)
[2022-04-10] MEDS: Zinc Sulfate 220 MG CAP PO SCH (10:54)
[2022-04-10] MEDS: Alogliptin 25 MG TAB PO SCH (10:55)
[2022-04-10] MEDS: busPIRone HCl 10 MG TAB PO SCH ×3 (10:55→22:37)
[2022-04-10] MEDS: Aspirin 81 mg Enteric Coated Tablet PO SCH (10:55)
[2022-04-10] MEDS: Finasteride 5 MG TAB PO SCH (10:55)
[2022-04-10] MEDS: NIFEdipine XL 30 MG TAB PO SCH ×2 (10:55→22:36)
[2022-04-10] MEDS: Empagliflozin 25 MG TAB PO SCH (10:56)
[2022-04-10] MEDS: Artificial Tear Sol 15 ML BOT L EYE SCH ×3 (10:57→22:38)
[2022-04-10] MEDS: Dexamethasone 10 MG/ML VIAL SLOW IVP SCH (10:58)
[2022-04-10] MEDS ORDERED: Insulin Regular 300 UNITS/3 ML VIAL SC SCH (12:00)
[2022-04-10] MEDS: Rivaroxaban 15 MG TAB PO SCH (17:22)
[2022-04-10] MEDS: Atorvastatin Calcium 40 MG TAB PO SCH (22:37)
[2022-04-11 04:13] LABS: #Lymphocytes 0.8 thou/uL (1.20-3.40); #Monocytes 0.6 thou/uL (0.11-0.59); #Neutrophils 10.1 thou/uL (1.40-6.50); %Eosinophils 0.1 % (0.0-10.0); %Lymphocytes 7.1 % (21.0-51.0); %Monocytes 5.4 % (0.0-10.0); %Neutrophils 87.4 % (42.0-75.0); Hemoglobin 11.5 g/dL (14.0-18.0); Mean Corpuscular HGB CONC 31.2 g/dL (32.0-36.0); Mean Corpuscular Volume 76.9 fL (78.0-98.0); Mean Platelet Volume 10.7 fL (7.4-10.4); Platelet Count 188 thou/uL (130-400); RBC Distribution Width 16.4 % (11.5-14.5); Red Blood Cell (RBC) Count 4.78 mill/uL (4.70-6.10); White Blood Cell (WBC) Count 11.6 thou/uL (4.8-10.8)
[2022-04-11 04:37] LABS: Anion Gap 19 mmol/L (10-20); BUN (Urea Nitrogen) 60 mg/dL (8.4-25.7); CRP (Inflammatory) 5.46 mg/dL (= or < 0.5); Calc. Creatinine Clearance 39 mL/min (70-130); Carbon Dioxide 19 mmol/L (23-31); Chloride 104 mmol/L (98-107); Estimated GFR 35; Glucose 309 mg/dL (80-115); Potassium 3.8 mmol/L (3.5-5.1); Sodium 138 mmol/L (136-145)
[2022-04-11] MEDS: HumaLOG 300 UNITS/3 ML VIAL SC PRN ×2 (06:36→11:47)
[2022-04-11] MEDS: Empagliflozin 25 MG TAB PO SCH (08:49)
[2022-04-11] MEDS: NIFEdipine XL 30 MG TAB PO SCH (08:49)
[2022-04-11] MEDS: Zinc Sulfate 220 MG CAP PO SCH (08:49)
[2022-04-11] MEDS: Artificial Tear Sol 15 ML BOT L EYE SCH ×2 (08:49→15:03)
[2022-04-11] MEDS: Alogliptin 25 MG TAB PO SCH (08:49)
[2022-04-11] MEDS: Cholecalciferol 1,000 UNITS (25 MCG) TAB PO SCH (08:49)
[2022-04-11] MEDS: Metoprolol Tartrate 100 MG TAB PO SCH (08:49)
[2022-04-11] MEDS: busPIRone HCl 10 MG TAB PO SCH ×2 (08:50→15:03)
[2022-04-11] MEDS: Ascorbic Acid 500 mg Chewable Tablet PO SCH (08:50)
[2022-04-11] MEDS: Aspirin 81 mg Enteric Coated Tablet PO SCH (08:50)
[2022-04-11] MEDS: Finasteride 5 MG TAB PO SCH (08:50)
[2022-04-11] MEDS: Dexamethasone 10 MG/ML VIAL SLOW IVP SCH (08:50)
[2022-04-11 15:23] VITALS: BP 140/83; TEMP 97.4
== END 2022-04-11 16:15 | DRG 871 ==
LOC: ERS 16:32 → 2NO 20:21
PROVIDERS: ADMIT Internal Medicine; ATTEND Internal Medicine
PROC: 3E0333Z Introduction of Anti-inflammatory into Peripheral Vein, Percutaneous Approach (ICD-10-PCS; principal; 2022-04-08)
PROC: 8E0ZXY6 Isolation (ICD-10-PCS; 2022-04-08)
PROC: 3E03329 Introduction of Other Anti-infective into Peripheral Vein, Percutaneous Approach (ICD-10-PCS; 2022-04-08)
DX: A41.89 Other specified sepsis (principal); U07.1 COVID-19; J96.01 Acute respiratory failure with hypoxia; G93.41 Metabolic encephalopathy; N17.9 Acute kidney failure, unspecified; I48.20 Chronic atrial fibrillation, unspecified; E78.5 Hyperlipidemia, unspecified; F01.50 Vascular dementia, unspecified severity, without behavioral disturbance, psychotic disturbance, mood disturbance, and anxiety; K21.9 Gastro-esophageal reflux disease without esophagitis; F32.A Depression, unspecified; F41.9 Anxiety disorder, unspecified; I12.9 Hypertensive chronic kidney disease with stage 1 through stage 4 chronic kidney disease, or unspecified chronic kidney disease; E11.22 Type 2 diabetes mellitus with diabetic chronic kidney disease; N18.30 Chronic kidney disease, stage 3 unspecified; Z79.01 Long term (current) use of anticoagulants
CPT/HCPCS: 36415; 36416; 70450; 71045; 80048; 80053; 81003; 81015; 82550; 82553; 83605; 83690; 84484; 85025; 85610; 85730; 86140; 87040; 87086; 93005; 96361; 96365; 96366; 96367; 96375; J0456; J0696; J1100; J1815; U0003; U0005

== ENCOUNTER 2022-07-28 08:30 | Inpatient (IN) | payer MEDICARE, MEDICAID ==
[2022-07-28 09:18] LABS: #Basophils 0.1 thou/uL (0.0-0.2); #Eosinphils 0.1 thou/uL (0.0-0.7); #Lymphocytes 1.9 thou/uL (1.20-3.40); #Neutrophils 8.7 thou/uL (1.40-6.50); %Basophils 0.7 % (0.0-1.0); %Eosinophils 1.1 % (0.0-10.0); %Lymphocytes 15.8 % (21.0-51.0); %Monocytes 8.1 % (0.0-10.0); %Neutrophils 74.3 % (42.0-75.0); Hemoglobin 10.8 g/dL (14.0-18.0); Mean Corpuscular HGB CONC 30.5 g/dL (32.0-36.0); Mean Corpuscular Volume 75.3 fl (78.0-98.0); Mean Platelet Volume 9.5 fL (7.4-10.4); Platelet Count 240 thou/uL (130-400); RBC Distribution Width 16.4 % (11.5-14.5); Red Blood Cell (RBC) Count 4.69 mill/uL (4.70-6.10); White Blood Cell (WBC) Count 11.8 thou/uL (4.8-10.8)
[2022-07-28] MEDS ORDERED: Aspirin 300 MG Suppository ONE (09:21)
[2022-07-28 09:29] LABS: INR-International Normal Ratio 1.2; PTT 33.7 sec (22.9-36.1); Prothrombin Time 15.2 sec (12.0-14.7)
[2022-07-28 09:44] LABS: CK (CPK) 100 U/L (30-200); Magnesium 2.3 mg/dL (1.6-2.6)
[2022-07-28 10:01] LABS: CKMB 3.2 ng/mL (0-6.6)
[2022-07-28] MEDS ORDERED: hydrALAZINE 20 MG/ML VIAL SLOW IVP PRN (10:45)
[2022-07-28] MEDS ORDERED: Dextrose 5% in Water 1,000 ML IV PRN (11:03)
[2022-07-28] MEDS ORDERED: Dextrose 50% Abboject 50 ML SYRINGE SLOW IVP PRN (11:03)
[2022-07-28] MEDS ORDERED: Clopidogrel Bisulfate 75 MG TAB PO SCH (11:15)
[2022-07-28] MEDS: Diltiazem 125 MG in Sodium Chloride 0.9% 100 ML IVPB SCH ×2 (13:34→20:37)
[2022-07-28] MEDS ORDERED: Iopamidol-370 76% 500 ML 1 ML ONE ×2 (13:50→13:51)
[2022-07-28 15:10] LABS: Troponin I 0.046 ng/mL (< 0.028)
[2022-07-28 18:24] LABS: SARS-CoV-2 NAA Rapid Test Not Detected (NotDetected)
[2022-07-28] MEDS: Atorvastatin Calcium 40 MG TAB PO SCH (20:37)
[2022-07-29 04:25] LABS: Anion Gap 22 mmol/L (10-20); BUN (Urea Nitrogen) 35 mg/dL (8.4-25.7); Calc. Creatinine Clearance 39 mL/min (70-130); Carbon Dioxide 14 mmol/L (23-31); Chloride 109 mmol/L (98-107); Potassium 4.2 mmol/L (3.5-5.1); Sodium 141 mmol/L (136-145)
[2022-07-29 04:26] LABS: Calcium 9.2 mg/dL (7.8-10.44); Cardiac Risk 2.2 (Less than 4.5); Cholesterol 97 mg/dl (< 200 Desired); Estimated GFR 34; Glucose 188 mg/dL (80-115); HDL Cholesterol 45 mg/dL (>60 Neg Risk); LDL Cholesterol, Calculated 38 mg/dL; Triglycerides 70 mg/dL (Less than 150)
[2022-07-29 05:08] LABS: Band 28 % (5-11); Hypochromia SLIGHT = 6-15 cells (100X) (0-5/hpf); Lymphocytes 7 % (21-51); MDiff Complete? YES; Mean Corpuscular HGB CONC 29.7 g/dL (32.0-36.0); Mean Corpuscular Hemoglobin 21.9 pg (27.0-31.0); Mean Corpuscular Volume 73.9 fl (78.0-98.0); Microcytosis SLIGHT = 6-15 cells (100X) (0-5/hpf); Monocytes 7 % (0-10); Neutrophil 58 % (42-75); Platelet Count 236 thou/uL (130-400); Platelet Morphology Comment Appears Adequate; RBC Distribution Width 16.7 % (11.5-14.5); Red Blood Cell (RBC) Count 4.99 mill/uL (4.70-6.10)
[2022-07-29] MEDS: Diltiazem 125 MG in Sodium Chloride 0.9% 100 ML IVPB SCH ×3 (05:16→20:57)
[2022-07-29] MEDS ORDERED: Piperacillin/Tazobactam 3.375 GM in Sodium Chloride 0.9% 100 ML IVPB SCH ×2 (08:00→09:00)
[2022-07-29] MEDS: Scopolamine 1.5 mg/72 hour Patch TD SCH (08:49)
[2022-07-29] MEDS: Sodium Bicarbonate 140 MEQ in Dextrose 5% in Water 1,000 ML IV SCH ×2 (08:50→21:56)
[2022-07-29] MEDS: Pantoprazole 40 MG VIAL IVP SCH (08:50)
[2022-07-29] MEDS: Aspirin 300 MG Suppository PR SCH (08:50)
[2022-07-29] MEDS ORDERED: FLU VACC QS2022-23(65YR UP)/PF 240 MCG/0.7 ML SYRINGE IM ONE (09:00)
[2022-07-29] MEDS: Aspirin 325 mg Enteric Coated Tablet PO SCH (09:00)
[2022-07-29] MEDS: HumaLOG 300 UNITS/3 ML VIAL SC PRN ×3 (10:14→21:22)
[2022-07-29] MEDS: Piperacillin/Tazobactam 3.375 GM in Sodium Chloride 0.9% 100 ML IVPB SCH ×2 (12:58→20:57)
[2022-07-29] MEDS: Clopidogrel Bisulfate 75 MG TAB PO SCH (12:58)
[2022-07-29] MEDS: Senokot S 8.6-50 MG TAB PO SCH (20:56)
[2022-07-29] MEDS: Atorvastatin Calcium 40 MG TAB PO SCH (20:56)
[2022-07-30 04:22] LABS: #Lymphocytes 1.2 thou/uL (1.20-3.40); #Monocytes 1.4 thou/uL (0.11-0.59); #Neutrophils 10.9 thou/uL (1.40-6.50); %Basophils 0.1 % (0.0-1.0); %Eosinophils 0.1 % (0.0-10.0); %Lymphocytes 8.8 % (21.0-51.0); %Monocytes 10.6 % (0.0-10.0); %Neutrophils 80.4 % (42.0-75.0); Hemoglobin 10.6 g/dL (14.0-18.0); Mean Corpuscular HGB CONC 30.3 g/dL (32.0-36.0); Mean Corpuscular Hemoglobin 22.7 pg (27.0-31.0); Mean Corpuscular Volume 74.8 fl (78.0-98.0); Mean Platelet Volume 10.2 fL (7.4-10.4); Platelet Count 221 thou/uL (130-400); Red Blood Cell (RBC) Count 4.65 mill/uL (4.70-6.10); White Blood Cell (WBC) Count 13.6 thou/uL (4.8-10.8)
[2022-07-30 04:37] LABS: Anion Gap 17 mmol/L (10-20); BUN (Urea Nitrogen) 37 mg/dL (8.4-25.7); Calc. Creatinine Clearance 43 mL/min (70-130); Calcium 9.3 mg/dL (7.8-10.44); Carbon Dioxide 22 mmol/L (23-31); Chloride 107 mmol/L (98-107); Estimated GFR 38; Glucose 201 mg/dL (80-115); Potassium 3.8 mmol/L (3.5-5.1); Sodium 142 mmol/L (136-145)
[2022-07-30] MEDS: Piperacillin/Tazobactam 3.375 GM in Sodium Chloride 0.9% 100 ML IVPB SCH ×3 (05:55→20:46)
[2022-07-30] MEDS: HumaLOG 300 UNITS/3 ML VIAL SC PRN ×3 (05:58→17:02)
[2022-07-30] MEDS: Aspirin 325 mg Enteric Coated Tablet PO SCH (09:00)
[2022-07-30] MEDS: Senokot S 8.6-50 MG TAB PO SCH ×2 (09:42→20:46)
[2022-07-30] MEDS: Aspirin 300 MG Suppository PR SCH (09:42)
[2022-07-30] MEDS: Pantoprazole 40 MG VIAL IVP SCH (09:42)
[2022-07-30] MEDS: Clopidogrel Bisulfate 75 MG TAB PO SCH (09:43)
[2022-07-30] MEDS: Polyethylene Glycol 3350 17 GM Packet PO SCH (09:43)
[2022-07-30] MEDS ORDERED: Metoprolol Tartrate 100 MG TAB PER TUBE SCH (11:00)
[2022-07-30] MEDS ORDERED: Enoxaparin Sodium 40 MG/0.4 ML SYRINGE SC SCH (11:00)
[2022-07-30] MEDS: Dextrose 5 %-0.45 % NaCl 1,000 ML IV SCH (13:27)
[2022-07-30] MEDS ORDERED: Amlodipine 5 MG TAB PER TUBE SCH (15:30)
[2022-07-30] MEDS: Diltiazem 125 MG in Sodium Chloride 0.9% 100 ML IVPB SCH (16:26)
[2022-07-30] MEDS: Atorvastatin Calcium 40 MG TAB PO SCH (20:46)
[2022-07-30] MEDS: Metoprolol Tartrate 100 MG TAB PER TUBE SCH (20:47)
[2022-07-31] MEDS: Dextrose 5 %-0.45 % NaCl 1,000 ML IV SCH ×2 (02:00→16:06)
[2022-07-31 04:01] LABS: #Eosinphils 0.1 thou/uL (0.0-0.7); #Lymphocytes 1.5 thou/uL (1.20-3.40); #Monocytes 1.5 thou/uL (0.11-0.59); #Neutrophils 10.9 thou/uL (1.40-6.50); %Basophils 0.1 % (0.0-1.0); %Eosinophils 0.4 % (0.0-10.0); %Lymphocytes 10.9 % (21.0-51.0); %Monocytes 10.5 % (0.0-10.0); %Neutrophils 78.1 % (42.0-75.0); Hemoglobin 11.6 g/dL (14.0-18.0); Mean Corpuscular HGB CONC 30.1 g/dL (32.0-36.0); Mean Corpuscular Volume 76.6 fl (78.0-98.0); Mean Platelet Volume 9.7 fL (7.4-10.4); Platelet Count 224 thou/uL (130-400); RBC Distribution Width 16.7 % (11.5-14.5); Red Blood Cell (RBC) Count 5.02 mill/uL (4.70-6.10); White Blood Cell (WBC) Count 13.9 thou/uL (4.8-10.8)
[2022-07-31 04:28] LABS: Anion Gap 14 mmol/L (10-20); BUN (Urea Nitrogen) 32 mg/dL (8.4-25.7); Calc. Creatinine Clearance 49 mL/min (70-130); Calcium 9.3 mg/dL (7.8-10.44); Carbon Dioxide 22 mmol/L (23-31); Chloride 107 mmol/L (98-107); Estimated GFR 44; Glucose 203 mg/dL (80-115); Potassium 3.8 mmol/L (3.5-5.1); Sodium 139 mmol/L (136-145)
[2022-07-31] MEDS: Piperacillin/Tazobactam 3.375 GM in Sodium Chloride 0.9% 100 ML IVPB SCH ×3 (05:03→22:00)
[2022-07-31] MEDS: HumaLOG 300 UNITS/3 ML VIAL SC PRN ×3 (05:04→23:19)
[2022-07-31] MEDS ORDERED: Amlodipine 5 MG TAB PER TUBE SCH (09:00)
[2022-07-31] MEDS: Metoprolol Tartrate 100 MG TAB PER TUBE SCH ×2 (09:44→22:00)
[2022-07-31] MEDS: Aspirin 325 MG TAB PER TUBE SCH (09:44)
[2022-07-31] MEDS: Clopidogrel Bisulfate 75 MG TAB PO SCH (09:44)
[2022-07-31] MEDS: Senokot S 8.6-50 MG TAB PO SCH ×2 (09:44→22:00)
[2022-07-31] MEDS: Polyethylene Glycol 3350 17 GM Packet PO SCH (09:45)
[2022-07-31] MEDS: Pantoprazole 40 MG VIAL IVP SCH (09:45)
[2022-07-31] MEDS: Enoxaparin Sodium 40 MG/0.4 ML SYRINGE SC SCH (09:45)
[2022-07-31] MEDS: Labetalol HCl 100 MG/20 ML VIAL SLOW IVP PRN ×2 (10:10→17:10)
[2022-07-31] MEDS: hydrALAZINE 20 MG/ML VIAL SLOW IVP PRN ×2 (12:04→17:43)
[2022-07-31] MEDS: Atorvastatin Calcium 40 MG TAB PO SCH (22:00)
[2022-08-01 04:18] LABS: #Basophils 0.1 thou/uL (0.0-0.2); #Eosinphils 0.1 thou/uL (0.0-0.7); #Lymphocytes 1.5 thou/uL (1.20-3.40); #Monocytes 1.1 thou/uL (0.11-0.59); #Neutrophils 7.1 thou/uL (1.40-6.50); %Basophils 0.6 % (0.0-1.0); %Eosinophils 1.2 % (0.0-10.0); %Lymphocytes 14.7 % (21.0-51.0); %Neutrophils 72.5 % (42.0-75.0); Mean Corpuscular HGB CONC 30.7 g/dL (32.0-36.0); Mean Corpuscular Volume 74.9 fl (78.0-98.0); Mean Platelet Volume 9.7 fL (7.4-10.4); Platelet Count 216 thou/uL (130-400); RBC Distribution Width 16.8 % (11.5-14.5); Red Blood Cell (RBC) Count 4.79 mill/uL (4.70-6.10); White Blood Cell (WBC) Count 9.9 thou/uL (4.8-10.8)
[2022-08-01] MEDS: HumaLOG 300 UNITS/3 ML VIAL SC PRN ×4 (04:19→23:46)
[2022-08-01] MEDS: Dextrose 5 %-0.45 % NaCl 1,000 ML IV SCH ×2 (04:26→18:17)
[2022-08-01 04:27] LABS: Anion Gap 13 mmol/L (10-20); BUN (Urea Nitrogen) 35 mg/dL (8.4-25.7); Calc. Creatinine Clearance 44 mL/min (70-130); Calcium 8.5 mg/dL (7.8-10.44); Carbon Dioxide 22 mmol/L (23-31); Chloride 108 mmol/L (98-107); Estimated GFR 40; Glucose 236 mg/dL (80-115); Magnesium 2.2 mg/dL (1.6-2.6); Potassium 3.5 mmol/L (3.5-5.1); Sodium 139 mmol/L (136-145)
[2022-08-01] MEDS: Piperacillin/Tazobactam 3.375 GM in Sodium Chloride 0.9% 100 ML IVPB SCH ×3 (04:27→22:38)
[2022-08-01] MEDS ORDERED: Amlodipine 5 MG TAB PO SCH (09:00)
[2022-08-01] MEDS: Amlodipine 5 MG TAB PER TUBE SCH ×2 (09:02→21:11)
[2022-08-01] MEDS: Metoprolol Tartrate 100 MG TAB PER TUBE SCH ×2 (09:02→21:10)
[2022-08-01] MEDS: Scopolamine 1.5 mg/72 hour Patch TD SCH (09:02)
[2022-08-01] MEDS: Losartan 25 MG TAB PO SCH (09:02)
[2022-08-01] MEDS: Polyethylene Glycol 3350 17 GM Packet PO SCH (09:03)
[2022-08-01] MEDS: Pantoprazole 40 MG VIAL IVP SCH (09:03)
[2022-08-01] MEDS: Clopidogrel Bisulfate 75 MG TAB PO SCH (09:03)
[2022-08-01] MEDS: Aspirin 325 MG TAB PER TUBE SCH (09:03)
[2022-08-01] MEDS: Enoxaparin Sodium 40 MG/0.4 ML SYRINGE SC SCH (09:03)
[2022-08-01] MEDS: Senokot S 8.6-50 MG TAB PO SCH ×2 (09:03→21:25)
[2022-08-01] MEDS: hydrALAZINE 20 MG/ML VIAL SLOW IVP PRN (15:26)
[2022-08-01] MEDS: Atorvastatin Calcium 40 MG TAB PO SCH (21:10)
[2022-08-01] MEDS: Labetalol HCl 100 MG/20 ML VIAL SLOW IVP PRN (23:48)
[2022-08-02] MEDS: Diltiazem 125 MG in Sodium Chloride 0.9% 100 ML IVPB SCH (01:11)
[2022-08-02 04:17] LABS: #Eosinphils 0.2 thou/uL (0.0-0.7); #Lymphocytes 1.4 thou/uL (1.20-3.40); #Monocytes 1.1 thou/uL (0.11-0.59); #Neutrophils 7.2 thou/uL (1.40-6.50); %Basophils 0.1 % (0.0-1.0); %Eosinophils 2.1 % (0.0-10.0); %Lymphocytes 14.3 % (21.0-51.0); %Monocytes 11.4 % (0.0-10.0); %Neutrophils 72.1 % (42.0-75.0); Hemoglobin 10.9 g/dL (14.0-18.0); Mean Corpuscular HGB CONC 29.4 g/dL (32.0-36.0); Mean Corpuscular Hemoglobin 22.2 pg (27.0-31.0); Mean Corpuscular Volume 75.6 fl (78.0-98.0); Mean Platelet Volume 9.9 fL (7.4-10.4); Platelet Count 245 thou/uL (130-400); White Blood Cell (WBC) Count 9.9 thou/uL (4.8-10.8)
[2022-08-02 04:26] LABS: Anion Gap 15 mmol/L (10-20); BUN (Urea Nitrogen) 37 mg/dL (8.4-25.7); Calc. Creatinine Clearance 47 mL/min (70-130); Calcium 8.7 mg/dL (7.8-10.44); Carbon Dioxide 19 mmol/L (23-31); Chloride 110 mmol/L (98-107); Estimated GFR 41; Glucose 291 mg/dL (80-115); Magnesium 2.4 mg/dL (1.6-2.6); Potassium 3.6 mmol/L (3.5-5.1); Sodium 140 mmol/L (136-145)
[2022-08-02 05:53] VITALS: BMI 23.1
[2022-08-02] MEDS: Piperacillin/Tazobactam 3.375 GM in Sodium Chloride 0.9% 100 ML IVPB SCH ×3 (06:13→22:13)
[2022-08-02] MEDS: HumaLOG 300 UNITS/3 ML VIAL SC PRN ×3 (06:15→16:15)
[2022-08-02] MEDS: Dextrose 5 %-0.45 % NaCl 1,000 ML IV SCH ×2 (07:16→20:37)
[2022-08-02] MEDS: Lansoprazole 15 MG/5 ML (BATCHED)UDCUP PER TUBE SCH (09:07)
[2022-08-02] MEDS: Amlodipine 5 MG TAB PER TUBE SCH ×2 (09:07→20:39)
[2022-08-02] MEDS: Enoxaparin Sodium 40 MG/0.4 ML SYRINGE SC SCH (09:07)
[2022-08-02] MEDS: Polyethylene Glycol 3350 17 GM Packet PO SCH (09:08)
[2022-08-02] MEDS: Clopidogrel Bisulfate 75 MG TAB PO SCH (09:08)
[2022-08-02] MEDS: Metoprolol Tartrate 100 MG TAB PER TUBE SCH ×2 (09:08→20:40)
[2022-08-02] MEDS: Aspirin 325 MG TAB PER TUBE SCH (09:08)
[2022-08-02] MEDS: Losartan 25 MG TAB PO SCH (09:08)
[2022-08-02] MEDS: Senokot S 8.6-50 MG TAB PO SCH ×2 (09:09→20:25)
[2022-08-02] MEDS ORDERED: Diltiazem HCl SR 60 mg Capsule PO SCH (11:15)
[2022-08-02] MEDS ORDERED: Potassium Bicarbonate/Cit Ac 20 MEQ TAB PO SCH (11:15)
[2022-08-02] MEDS: Atorvastatin Calcium 40 MG TAB PO SCH (20:39)
[2022-08-03] MEDS: Labetalol HCl 100 MG/20 ML VIAL SLOW IVP PRN (00:17)
[2022-08-03] MEDS: HumaLOG 300 UNITS/3 ML VIAL SC PRN ×4 (00:20→18:38)
[2022-08-03] MEDS: Piperacillin/Tazobactam 3.375 GM in Sodium Chloride 0.9% 100 ML IVPB SCH ×3 (05:40→21:22)
[2022-08-03 05:48] LABS: #Basophils 0.1 thou/uL (0.0-0.2); #Eosinphils 0.2 thou/uL (0.0-0.7); #Lymphocytes 1.4 thou/uL (1.20-3.40); #Monocytes 0.9 thou/uL (0.11-0.59); #Neutrophils 7.6 thou/uL (1.40-6.50); %Basophils 0.5 % (0.0-1.0); %Eosinophils 1.7 % (0.0-10.0); %Lymphocytes 13.9 % (21.0-51.0); %Neutrophils 74.8 % (42.0-75.0); Hemoglobin 10.7 g/dL (14.0-18.0); Mean Corpuscular HGB CONC 29.5 g/dL (32.0-36.0); Mean Corpuscular Hemoglobin 22.3 pg (27.0-31.0); Mean Corpuscular Volume 75.3 fl (78.0-98.0); Mean Platelet Volume 9.9 fL (7.4-10.4); Platelet Count 214 thou/uL (130-400); RBC Distribution Width 16.8 % (11.5-14.5); White Blood Cell (WBC) Count 10.1 thou/uL (4.8-10.8)
[2022-08-03 06:03] LABS: Anion Gap 14 mmol/L (10-20); BUN (Urea Nitrogen) 35 mg/dL (8.4-25.7); Calc. Creatinine Clearance 50 mL/min (70-130); Calcium 9.1 mg/dL (7.8-10.44); Carbon Dioxide 21 mmol/L (23-31); Chloride 108 mmol/L (98-107); Estimated GFR 45; Glucose 334 mg/dL (80-115); Magnesium 2.4 mg/dL (1.6-2.6); Sodium 139 mmol/L (136-145)
[2022-08-03] MEDS: Lansoprazole 15 MG/5 ML (BATCHED)UDCUP PER TUBE SCH (08:44)
[2022-08-03] MEDS: Enoxaparin Sodium 40 MG/0.4 ML SYRINGE SC SCH (08:44)
[2022-08-03] MEDS: Amlodipine 5 MG TAB PER TUBE SCH ×2 (08:45→21:23)
[2022-08-03] MEDS: Clopidogrel Bisulfate 75 MG TAB PO SCH (08:45)
[2022-08-03] MEDS: Aspirin 325 MG TAB PER TUBE SCH (08:45)
[2022-08-03] MEDS: Metoprolol Tartrate 100 MG TAB PER TUBE SCH ×2 (08:46→21:23)
[2022-08-03] MEDS: Losartan 25 MG TAB PO SCH (08:47)
[2022-08-03] MEDS: Polyethylene Glycol 3350 17 GM Packet PO SCH (08:48)
[2022-08-03] MEDS: Senokot S 8.6-50 MG TAB PO SCH ×2 (08:49→21:23)
[2022-08-03] MEDS: Dextrose 5 %-0.45 % NaCl 1,000 ML IV SCH (17:29)
[2022-08-03] MEDS ORDERED: Insulin Glargine 30 UNITS/0.3 ML VIAL SC SCH (21:00)
[2022-08-03] MEDS: Atorvastatin Calcium 40 MG TAB PO SCH (21:22)
[2022-08-04] MEDS: Dextrose 5 %-0.45 % NaCl 1,000 ML IV SCH ×2 (00:46→20:45)
[2022-08-04] MEDS: HumaLOG 300 UNITS/3 ML VIAL SC PRN ×4 (00:47→18:44)
[2022-08-04] MEDS: Labetalol HCl 100 MG/20 ML VIAL SLOW IVP PRN ×2 (00:50→04:31)
[2022-08-04] MEDS: Piperacillin/Tazobactam 3.375 GM in Sodium Chloride 0.9% 100 ML IVPB SCH ×3 (04:38→20:45)
[2022-08-04 06:34] LABS: #Basophils 0.1 thou/uL (0.0-0.2); #Eosinphils 0.3 thou/uL (0.0-0.7); #Lymphocytes 1.8 thou/uL (1.20-3.40); #Monocytes 1.1 thou/uL (0.11-0.59); %Basophils 0.5 % (0.0-1.0); %Eosinophils 2.2 % (0.0-10.0); %Lymphocytes 16.1 % (21.0-51.0); %Monocytes 9.5 % (0.0-10.0); %Neutrophils 71.7 % (42.0-75.0); Hemoglobin 10.1 g/dL (14.0-18.0); Mean Corpuscular HGB CONC 29.4 g/dL (32.0-36.0); Mean Corpuscular Hemoglobin 22.4 pg (27.0-31.0); Mean Corpuscular Volume 76.3 fl (78.0-98.0); Mean Platelet Volume 10.5 fL (7.4-10.4); Platelet Count 213 thou/uL (130-400); Red Blood Cell (RBC) Count 4.51 mill/uL (4.70-6.10); White Blood Cell (WBC) Count 11.2 thou/uL (4.8-10.8)
[2022-08-04 06:53] LABS: Anion Gap 14 mmol/L (10-20); BUN (Urea Nitrogen) 32 mg/dL (8.4-25.7); Calc. Creatinine Clearance 47 mL/min (70-130); Calcium 8.4 mg/dL (7.8-10.44); Carbon Dioxide 20 mmol/L (23-31); Chloride 107 mmol/L (98-107); Estimated GFR 42; Glucose 505 mg/dL (80-115); Magnesium 2.2 mg/dL (1.6-2.6); Sodium 137 mmol/L (136-145)
[2022-08-04] MEDS: Aspirin 325 MG TAB PER TUBE SCH (10:16)
[2022-08-04] MEDS: Scopolamine 1.5 mg/72 hour Patch TD SCH (10:16)
[2022-08-04] MEDS: Polyethylene Glycol 3350 17 GM Packet PO SCH (10:16)
[2022-08-04] MEDS: Amlodipine 5 MG TAB PER TUBE SCH ×2 (10:16→20:44)
[2022-08-04] MEDS: Metoprolol Tartrate 100 MG TAB PER TUBE SCH ×2 (10:17→20:45)
[2022-08-04] MEDS: Clopidogrel Bisulfate 75 MG TAB PO SCH (10:17)
[2022-08-04] MEDS: Senokot S 8.6-50 MG TAB PO SCH ×2 (10:17→20:46)
[2022-08-04] MEDS: Losartan 25 MG TAB PO SCH (10:17)
[2022-08-04] MEDS: Enoxaparin Sodium 40 MG/0.4 ML SYRINGE SC SCH (10:17)
[2022-08-04] MEDS: Lansoprazole 15 MG/5 ML (BATCHED)UDCUP PER TUBE SCH (10:17)
[2022-08-04] MEDS: Insulin Glargine 30 UNITS/0.3 ML VIAL SC SCH ×2 (10:18→20:45)
[2022-08-04] MEDS: hydrALAZINE 20 MG/ML VIAL SLOW IVP PRN (12:25)
[2022-08-04] MEDS: Atorvastatin Calcium 40 MG TAB PO SCH (20:44)
[2022-08-05] MEDS: HumaLOG 300 UNITS/3 ML VIAL SC PRN ×2 (01:01→06:21)
[2022-08-05 05:44] LABS: #Eosinphils 0.3 thou/uL (0.0-0.7); #Lymphocytes 1.8 thou/uL (1.20-3.40); #Neutrophils 7.9 thou/uL (1.40-6.50); %Basophils 0.4 % (0.0-1.0); %Eosinophils 2.4 % (0.0-10.0); %Lymphocytes 16.6 % (21.0-51.0); %Monocytes 9.2 % (0.0-10.0); %Neutrophils 71.4 % (42.0-75.0); Hemoglobin 11.3 g/dL (14.0-18.0); Mean Corpuscular HGB CONC 30.2 g/dL (32.0-36.0); Mean Corpuscular Hemoglobin 22.6 pg (27.0-31.0); Mean Corpuscular Volume 74.8 fl (78.0-98.0); Mean Platelet Volume 10.1 fL (7.4-10.4); Platelet Count 219 thou/uL (130-400); RBC Distribution Width 16.9 % (11.5-14.5); White Blood Cell (WBC) Count 11.1 thou/uL (4.8-10.8)
[2022-08-05 06:09] LABS: Anion Gap 15 mmol/L (10-20); BUN (Urea Nitrogen) 35 mg/dL (8.4-25.7); Calc. Creatinine Clearance 50 mL/min (70-130); Calcium 9.5 mg/dL (7.8-10.44); Carbon Dioxide 20 mmol/L (23-31); Chloride 106 mmol/L (98-107); Estimated GFR 44; Glucose 233 mg/dL (80-115); Magnesium 2.4 mg/dL (1.6-2.6); Potassium 3.9 mmol/L (3.5-5.1); Sodium 137 mmol/L (136-145)
[2022-08-05 06:11] LABS: Anisocytosis SLIGHT = 6-15 cells (100X) (0-5/hpf); MDiff Complete? YES; Platelet Morphology Comment Appears Adequate
[2022-08-05] MEDS: Piperacillin/Tazobactam 3.375 GM in Sodium Chloride 0.9% 100 ML IVPB SCH ×3 (06:18→22:05)
[2022-08-05] MEDS ORDERED: Ketamine 50 MG/ML (10ML VIAL) ONE (09:42)
[2022-08-05] MEDS ORDERED: PROPOFOL 200 MG/20 ML VIAL ONE (10:01)
[2022-08-05] MEDS: Insulin Glargine 30 UNITS/0.3 ML VIAL SC SCH ×2 (11:35→22:05)
[2022-08-05] MEDS: Aspirin 325 MG TAB PER TUBE SCH (11:35)
[2022-08-05] MEDS: Metoprolol Tartrate 100 MG TAB PER TUBE SCH ×2 (11:35→22:02)
[2022-08-05] MEDS: Lansoprazole 15 MG/5 ML (BATCHED)UDCUP PER TUBE SCH (11:35)
[2022-08-05] MEDS: Clopidogrel Bisulfate 75 MG TAB PO SCH (11:35)
[2022-08-05] MEDS: Losartan 25 MG TAB PO SCH (11:35)
[2022-08-05] MEDS: Enoxaparin Sodium 40 MG/0.4 ML SYRINGE SC SCH (11:36)
[2022-08-05] MEDS: Amlodipine 5 MG TAB PER TUBE SCH ×2 (11:36→22:02)
[2022-08-05] MEDS: Polyethylene Glycol 3350 17 GM Packet PO SCH (11:36)
[2022-08-05] MEDS: Senokot S 8.6-50 MG TAB PO SCH ×2 (11:36→22:09)
[2022-08-05] MEDS ORDERED: Sodium Bicarbonate Tab 325 MG TAB PER TUBE PRN (14:00)
[2022-08-05] MEDS ORDERED: Pancrelipase DR 12,000 1 CAP FS PRN (14:00)
[2022-08-05] MEDS: Dextrose 5 %-0.45 % NaCl 1,000 ML IV SCH (17:53)
[2022-08-05] MEDS: Atorvastatin Calcium 40 MG TAB PO SCH (22:14)
[2022-08-06] MEDS: HumaLOG 300 UNITS/3 ML VIAL SC PRN ×4 (00:32→17:46)
[2022-08-06] MEDS: Piperacillin/Tazobactam 3.375 GM in Sodium Chloride 0.9% 100 ML IVPB SCH ×3 (05:26→20:08)
[2022-08-06 07:17] LABS: Hemoglobin 12.2 g/dL (14.0-18.0); Mean Corpuscular Hemoglobin 22.2 pg (27.0-31.0); Mean Corpuscular Volume 74.2 fl (78.0-98.0); Mean Platelet Volume 10.8 fL (7.4-10.4); Platelet Count 243 thou/uL (130-400); Red Blood Cell (RBC) Count 5.47 mill/uL (4.70-6.10); White Blood Cell (WBC) Count 12.6 thou/uL (4.8-10.8)
[2022-08-06 07:18] LABS: #Basophils 0.1 thou/uL (0.0-0.2); #Eosinphils 0.3 thou/uL (0.0-0.7); #Lymphocytes 1.6 thou/uL (1.20-3.40); #Monocytes 1.1 thou/uL (0.11-0.59); #Neutrophils 9.6 thou/uL (1.40-6.50); %Basophils 0.5 % (0.0-1.0); %Eosinophils 2.5 % (0.0-10.0); %Lymphocytes 12.5 % (21.0-51.0); %Monocytes 8.5 % (0.0-10.0)
[2022-08-06 07:32] LABS: Anion Gap 13 mmol/L (10-20); BUN (Urea Nitrogen) 35 mg/dL (8.4-25.7); Calc. Creatinine Clearance 50 mL/min (70-130); Calcium 9.6 mg/dL (7.8-10.44); Carbon Dioxide 22 mmol/L (23-31); Chloride 105 mmol/L (98-107); Estimated GFR 45; Glucose 255 mg/dL (80-115); Magnesium 2.4 mg/dL (1.6-2.6); Potassium 3.7 mmol/L (3.5-5.1); Sodium 136 mmol/L (136-145)
[2022-08-06 08:26] LABS: Anisocytosis SLIGHT = 6-15 cells (100X) (0-5/hpf); Hypochromia SLIGHT = 6-15 cells (100X) (0-5/hpf); MDiff Complete? YES; Microcytosis SLIGHT = 6-15 cells (100X) (0-5/hpf); Platelet Morphology Comment Appears Adequate; Polychromasia SLIGHT = 2-3 cells (100X) (0-2/hpf); Tear Drops SLIGHT = 2-5 cells (100X) (0-1/hpf)
[2022-08-06] MEDS: Enoxaparin Sodium 40 MG/0.4 ML SYRINGE SC SCH (09:53)
[2022-08-06] MEDS: Aspirin 325 MG TAB PER TUBE SCH (09:53)
[2022-08-06] MEDS: Losartan 25 MG TAB PO SCH (09:54)
[2022-08-06] MEDS: Amlodipine 5 MG TAB PER TUBE SCH ×2 (09:54→20:07)
[2022-08-06] MEDS: Metoprolol Tartrate 100 MG TAB PER TUBE SCH ×2 (09:54→20:07)
[2022-08-06] MEDS: Clopidogrel Bisulfate 75 MG TAB PO SCH (09:54)
[2022-08-06] MEDS: Lansoprazole 15 MG/5 ML (BATCHED)UDCUP PER TUBE SCH (09:55)
[2022-08-06] MEDS: Insulin Glargine 30 UNITS/0.3 ML VIAL SC SCH ×2 (09:55→20:07)
[2022-08-06] MEDS: Polyethylene Glycol 3350 17 GM Packet PO SCH (10:05)
[2022-08-06] MEDS: Senokot S 8.6-50 MG TAB PO SCH ×2 (10:06→20:07)
[2022-08-06] MEDS: Dextrose 5 %-0.45 % NaCl 1,000 ML IV SCH (13:42)
[2022-08-06] MEDS ORDERED: Hydrochlorothiazide 25 MG TAB PER TUBE SCH (15:15)
[2022-08-06] MEDS: Acetaminophen 325 MG/10.15 ML UDCUP PER TUBE PRN (17:31)
[2022-08-06] MEDS: Atorvastatin Calcium 40 MG TAB PO SCH (20:07)
[2022-08-07] MEDS: HumaLOG 300 UNITS/3 ML VIAL SC PRN ×3 (00:25→18:17)
[2022-08-07] MEDS: Piperacillin/Tazobactam 3.375 GM in Sodium Chloride 0.9% 100 ML IVPB SCH ×2 (04:30→13:24)
[2022-08-07 06:13] LABS: #Basophils 0.1 thou/uL (0.0-0.2); #Eosinphils 0.4 thou/uL (0.0-0.7); #Lymphocytes 1.8 thou/uL (1.20-3.40); #Monocytes 1.2 thou/uL (0.11-0.59); #Neutrophils 8.5 thou/uL (1.40-6.50); %Basophils 0.6 % (0.0-1.0); %Eosinophils 3.2 % (0.0-10.0); %Lymphocytes 15.2 % (21.0-51.0); %Monocytes 10.1 % (0.0-10.0); %Neutrophils 70.8 % (42.0-75.0); Hemoglobin 12.2 g/dL (14.0-18.0); Mean Corpuscular HGB CONC 29.2 g/dL (32.0-36.0); Mean Corpuscular Hemoglobin 22.2 pg (27.0-31.0); Mean Corpuscular Volume 75.9 fl (78.0-98.0); Mean Platelet Volume 10.5 fL (7.4-10.4); Microcytosis SLIGHT = 6-15 cells (100X) (0-5/hpf); Platelet Count 226 10x3/uL (130-400); RBC Distribution Width 16.9 % (11.5-14.5); Red Blood Cell (RBC) Count 5.48 mill/uL (4.70-6.10)
[2022-08-07 06:25] LABS: Anion Gap 13 mmol/L (10-20); BUN (Urea Nitrogen) 38 mg/dL (8.4-25.7); Calc. Creatinine Clearance 53 mL/min (70-130); Calcium 9.1 mg/dL (7.8-10.44); Carbon Dioxide 23 mmol/L (23-31); Chloride 100 mmol/L (98-107); Estimated GFR 48; Glucose 206 mg/dL (80-115); Iron 38 ug/dL (65-175); Iron Binding Capacity, Total 309 mcg/dL (261-462); Magnesium 2.3 mg/dL (1.6-2.6); Potassium 3.6 mmol/L (3.5-5.1)
[2022-08-07 06:31] LABS: Sodium 132 mmol/L (136-145)
[2022-08-07] MEDS: Scopolamine 1.5 mg/72 hour Patch TD SCH (10:16)
[2022-08-07] MEDS: Enoxaparin Sodium 40 MG/0.4 ML SYRINGE SC SCH (10:19)
[2022-08-07] MEDS: Lansoprazole 15 MG/5 ML (BATCHED)UDCUP PER TUBE SCH (10:19)
[2022-08-07] MEDS: Polyethylene Glycol 3350 17 GM Packet PO SCH ×2 (10:19→10:31)
[2022-08-07] MEDS: Losartan 25 MG TAB PO SCH (10:20)
[2022-08-07] MEDS: Aspirin 325 MG TAB PER TUBE SCH (10:20)
[2022-08-07] MEDS: Senokot S 8.6-50 MG TAB PO SCH ×2 (10:20→20:59)
[2022-08-07] MEDS: Hydrochlorothiazide 25 MG TAB PER TUBE SCH (10:20)
[2022-08-07] MEDS: Clopidogrel Bisulfate 75 MG TAB PO SCH (10:21)
[2022-08-07] MEDS: Amlodipine 5 MG TAB PER TUBE SCH ×2 (10:21→20:51)
[2022-08-07] MEDS: Metoprolol Tartrate 100 MG TAB PER TUBE SCH ×2 (10:21→20:51)
[2022-08-07] MEDS: Insulin Glargine 30 UNITS/0.3 ML VIAL SC SCH (10:26)
[2022-08-07] MEDS: Acetaminophen 325 MG/10.15 ML UDCUP PER TUBE PRN (10:29)
[2022-08-07] MEDS: Dextrose 5 %-0.45 % NaCl 1,000 ML IV SCH (13:25)
[2022-08-07] MEDS: Atorvastatin Calcium 40 MG TAB PO SCH (20:51)
[2022-08-07] MEDS ORDERED: Insulin Glargine 30 UNITS/0.3 ML VIAL SC SCH (21:00)
[2022-08-08] MEDS ORDERED: OLANZapine 10 MG VIAL IM SCH (04:00)
[2022-08-08] MEDS ORDERED: HumaLOG 300 UNITS/3 ML VIAL SC PRN (04:28)
[2022-08-08 05:29] LABS: #Eosinphils 0.3 thou/uL (0.0-0.7); #Lymphocytes 1.9 thou/uL (1.20-3.40); #Neutrophils 9.3 thou/uL (1.40-6.50); %Basophils 0.3 % (0.0-1.0); %Eosinophils 2.4 % (0.0-10.0); %Lymphocytes 15.4 % (21.0-51.0); %Monocytes 8.2 % (0.0-10.0); %Neutrophils 73.8 % (42.0-75.0); Hemoglobin 11.6 g/dL (14.0-18.0); Mean Corpuscular HGB CONC 30.7 g/dL (32.0-36.0); Mean Corpuscular Hemoglobin 22.7 pg (27.0-31.0); Mean Platelet Volume 10.5 fL (7.4-10.4); Platelet Count 220 10x3/uL (130-400); RBC Distribution Width 16.9 % (11.5-14.5); Red Blood Cell (RBC) Count 5.12 mill/uL (4.70-6.10); White Blood Cell (WBC) Count 12.6 10x3/uL (4.8-10.8)
[2022-08-08 05:45] LABS: Anion Gap 15 mmol/L (10-20); BUN (Urea Nitrogen) 40 mg/dL (8.4-25.7); Calc. Creatinine Clearance 50 mL/min (70-130); Calcium 9.4 mg/dL (7.8-10.44); Carbon Dioxide 26 mmol/L (23-31); Chloride 99 mmol/L (98-107); Estimated GFR 44; Glucose 228 mg/dL (80-115); Potassium 3.6 mmol/L (3.5-5.1); Sodium 136 mmol/L (136-145)
[2022-08-08] MEDS: Dextrose 5 %-0.45 % NaCl 1,000 ML IV SCH (06:09)
[2022-08-08] MEDS: HumaLOG 300 UNITS/3 ML VIAL SC PRN ×2 (06:34→12:48)
[2022-08-08] MEDS: Polyethylene Glycol 3350 17 GM Packet PO SCH (08:16)
[2022-08-08] MEDS: Amlodipine 5 MG TAB PER TUBE SCH (08:17)
[2022-08-08] MEDS: Losartan 25 MG TAB PO SCH (08:17)
[2022-08-08] MEDS: Clopidogrel Bisulfate 75 MG TAB PO SCH (08:17)
[2022-08-08] MEDS: Metoprolol Tartrate 100 MG TAB PER TUBE SCH (08:17)
[2022-08-08] MEDS: Aspirin 325 MG TAB PER TUBE SCH (08:18)
[2022-08-08] MEDS: Hydrochlorothiazide 25 MG TAB PER TUBE SCH (08:18)
[2022-08-08] MEDS: Enoxaparin Sodium 40 MG/0.4 ML SYRINGE SC SCH (08:18)
[2022-08-08] MEDS: Senokot S 8.6-50 MG TAB PO SCH (08:19)
[2022-08-08] MEDS: Lansoprazole 15 MG/5 ML (BATCHED)UDCUP PER TUBE SCH (08:46)
[2022-08-08] MEDS ORDERED: Insulin Glargine 30 UNITS/0.3 ML VIAL SC SCH (09:00)
[2022-08-08 11:34] VITALS: BP 114/85; TEMP 97.2
== END 2022-08-08 17:40 | DRG 64 ==
LOC: ERS 08:30 → ERHOLD 10:41 → CCU 12:45 → NEURO 08-02 20:04
PROVIDERS: ADMIT Internal Medicine; ATTEND Internal Medicine
PROC: 0DH67UZ Insertion of Feeding Device into Stomach, Via Natural or Artificial Opening (ICD-10-PCS; 2022-07-29)
PROC: 3E0G76Z Introduction of Nutritional Substance into Upper GI, Via Natural or Artificial Opening (ICD-10-PCS; 2022-07-29)
PROC: 0DH63UZ Insertion of Feeding Device into Stomach, Percutaneous Approach (ICD-10-PCS; principal; 2022-08-05)
PROC: 3E0G76Z Introduction of Nutritional Substance into Upper GI, Via Natural or Artificial Opening (ICD-10-PCS; 2022-08-05)
DX: I63.512 Cerebral infarction due to unspecified occlusion or stenosis of left middle cerebral artery (principal); A41.9 Sepsis, unspecified organism; J69.0 Pneumonitis due to inhalation of food and vomit; J96.01 Acute respiratory failure with hypoxia; R65.20 Severe sepsis without septic shock; G93.6 Cerebral edema; I48.20 Chronic atrial fibrillation, unspecified; N17.9 Acute kidney failure, unspecified; G81.91 Hemiplegia, unspecified affecting right dominant side; E87.0 Hyperosmolality and hypernatremia; Z20.822 Contact with and (suspected) exposure to COVID-19; I12.9 Hypertensive chronic kidney disease with stage 1 through stage 4 chronic kidney disease, or unspecified chronic kidney disease; E11.22 Type 2 diabetes mellitus with diabetic chronic kidney disease; R29.721 NIHSS score 21; R29.810 Facial weakness; F32.A Depression, unspecified; F41.9 Anxiety disorder, unspecified; R47.01 Aphasia; R47.1 Dysarthria and anarthria; N18.30 Chronic kidney disease, stage 3 unspecified; D63.1 Anemia in chronic kidney disease; F01.50 Vascular dementia, unspecified severity, without behavioral disturbance, psychotic disturbance, mood disturbance, and anxiety; E78.5 Hyperlipidemia, unspecified; R13.12 Dysphagia, oropharyngeal phase; Z79.01 Long term (current) use of anticoagulants; Z79.899 Other long term (current) drug therapy; Z79.82 Long term (current) use of aspirin; Z95.0 Presence of cardiac pacemaker
CPT/HCPCS: 0042T; 36415; 36416; 70450; 70496; 70498; 70551; 71045; 74018; 80048; 80061; 82550; 82553; 82728; 83540; 83550; 83735; 84443; 84484; 85025; 85610; 85730; 87040; 87086; 87811; 93005; 93306; 94760; 95712; 95819; 95957; C9113; J0360; J1650; J1815; J2543; J2704; J3490; J7042; J7070; Q9967; U0002

== ENCOUNTER 2022-08-10 19:19 | Inpatient (IN) | payer MEDICARE, MEDICAID ==
[2022-08-10] MEDS ORDERED: Diltiazem 125 MG/25 ML ONE (19:38)
[2022-08-10 19:59] LABS: #Eosinphils 0.2 thou/uL (0.0-0.7); #Lymphocytes 1.7 thou/uL (1.20-3.40); #Monocytes 1.3 thou/uL (0.11-0.59); #Neutrophils 11.6 thou/uL (1.40-6.50); %Basophils 0.2 % (0.0-1.0); %Eosinophils 1.1 % (0.0-10.0); %Lymphocytes 11.2 % (21.0-51.0); %Monocytes 8.7 % (0.0-10.0); %Neutrophils 78.8 % (42.0-75.0); Hemoglobin 12.8 g/dL (14.0-18.0); Mean Corpuscular HGB CONC 30.6 g/dL (32.0-36.0); Mean Corpuscular Hemoglobin 22.8 pg (27.0-31.0); Mean Corpuscular Volume 74.3 fl (78.0-98.0); Mean Platelet Volume 11.6 fL (7.4-10.4); Platelet Count 237 10x3/uL (130-400); RBC Distribution Width 18.1 % (11.5-14.5); Red Blood Cell (RBC) Count 5.63 mill/uL (4.70-6.10); White Blood Cell (WBC) Count 14.8 10x3/uL (4.8-10.8)
[2022-08-10 20:10] LABS: INR-International Normal Ratio 1.1; Prothrombin Time 14.4 sec (12.0-14.7)
[2022-08-10 20:11] LABS: PTT 33.8 sec (22.9-36.1)
[2022-08-10 20:21] LABS: ALT (SGPT) 28 U/L (8-55); AST (SGOT) 38 U/L (5-34); Albumin 3.7 g/dL (3.4-4.8); Alkaline Phosphatase 108 U/L (40-110); Anion Gap 17 mmol/L (10-20); BUN (Urea Nitrogen) 44 mg/dL (8.4-25.7); Bilirubin, Total 0.6 mg/dL (0.2-1.2); CK (CPK) 929 U/L (30-200); Calc. Creatinine Clearance 0 mL/min (70-130); Calcium 9.4 mg/dL (7.8-10.44); Carbon Dioxide 25 mmol/L (23-31); Chloride 99 mmol/L (98-107); Estimated GFR 39; Globulin 3.1 g/dL (2.4-3.5); Glucose 370 mg/dL (80-115); Lipase 66 U/L (8-78); Potassium 4.5 mmol/L (3.5-5.1); Protein, Total 6.8 g/dL (5.8-8.1); Sodium 136 mmol/L (136-145)
[2022-08-10 20:43] LABS: CKMB 4.2 ng/mL (0-6.6)
[2022-08-10] MEDS ORDERED: Ondansetron PF 4 MG/2 ML Vial IVP PRN (21:52)
[2022-08-10] MEDS ORDERED: Diltiazem 125 MG in Sodium Chloride 0.9% 100 ML IVPB SCH (22:00)
[2022-08-10] MEDS ORDERED: Dextrose 5% in Water 1,000 ML IV PRN (22:03)
[2022-08-10] MEDS ORDERED: Dextrose 50% Abboject 50 ML SYRINGE SLOW IVP PRN (22:03)
[2022-08-11] MEDS: HumaLOG 300 UNITS/3 ML VIAL SC PRN ×4 (00:27→18:00)
[2022-08-11] MEDS ORDERED: Piperacillin/Tazobactam 3.375 GM in Sodium Chloride 0.9% 100 ML IVPB SCH ×2 (00:30→09:00)
[2022-08-11] MEDS ORDERED: Pancrelipase DR 12,000 1 CAP FS PRN (01:13)
[2022-08-11] MEDS ORDERED: hydrALAZINE 10 MG TAB PO PRN (01:13)
[2022-08-11] MEDS: 1/2 NS w/KCL 20 mEq 1,000 ML IV SCH ×2 (01:38→01:55)
[2022-08-11] MEDS: Labetalol HCl 100 MG/20 ML VIAL SLOW IVP PRN (02:40)
[2022-08-11 03:14] LABS: Bacteria/HPF None Seen HPF (None Seen); Bilirubin Negative (Negative); Blood, Urine Negative (Negative); Clarity Clear (Clear); Glucose, Urine (Dipstick) Greater than 1000 mg/dL (Negative); Ketone, Urine Negative (Negative); Leukocyte Negative Leu/uL (Negative); Nitrite Negative (Negative); Protein, Urine (Dipstick) 70 mg/dL (Neg-Trace); Specific Gravity, Urine 1.023 (1.002-1.036); Squamous Epithelial None Seen HPF (0-3); Urobilinogen Normal mg/dL (Less than 2); WBC/HPF 0-3 HPF (0-3); pH, Urine 6.5 (5.0-9.0)
[2022-08-11 03:16] LABS: Urine Culture Reflex No No
[2022-08-11 03:20] LABS: Amphetamine Not Detected (NotDetected); Barbiturates Screen Not Detected (NotDetected); Benzodiazepine Screen Not Detected (NotDetected); Cocaine Metabolite Screen Not Detected (NotDetected); Methadone Not Detected (NotDetected); Methamphetamine Not Detected (NotDetected); Opiate Screen Detected (NotDetected); Oxycodone Screen Not Detected (NotDetected); Phencyclidine (PCP) Not Detected (NotDetected); THC/Cannabinoid Screen Not Detected (NotDetected); Tricyclic Screen Not Detected (NotDetected)
[2022-08-11] MEDS: niCARdipine 25 MG in Sodium Chloride 0.9% 250 ML 250 ML IVPB PRN ×2 (04:24→09:25)
[2022-08-11 04:45] LABS: #Eosinphils 0.2 thou/uL (0.0-0.7); #Lymphocytes 1.7 thou/uL (1.20-3.40); #Monocytes 1.5 thou/uL (0.11-0.59); #Neutrophils 11.2 thou/uL (1.40-6.50); %Basophils 0.3 % (0.0-1.0); %Eosinophils 1.2 % (0.0-10.0); %Lymphocytes 11.6 % (21.0-51.0); %Monocytes 10.2 % (0.0-10.0); %Neutrophils 76.6 % (42.0-75.0); Hemoglobin 11.2 g/dL (14.0-18.0); Mean Corpuscular Hemoglobin 22.6 pg (27.0-31.0); Mean Corpuscular Volume 75.1 fl (78.0-98.0); Mean Platelet Volume 10.9 fL (7.4-10.4); Platelet Count 223 10x3/uL (130-400); Red Blood Cell (RBC) Count 4.97 mill/uL (4.70-6.10); White Blood Cell (WBC) Count 14.6 10x3/uL (4.8-10.8)
[2022-08-11 04:56] LABS: Anion Gap 14 mmol/L (10-20); BUN (Urea Nitrogen) 40 mg/dL (8.4-25.7); Calc. Creatinine Clearance 44 mL/min (70-130); Calcium 9.3 mg/dL (7.8-10.44); Carbon Dioxide 27 mmol/L (23-31); Chloride 100 mmol/L (98-107); Estimated GFR 42; Glucose 295 mg/dL (80-115); Potassium 4.1 mmol/L (3.5-5.1); Sodium 137 mmol/L (136-145)
[2022-08-11] MEDS: Diltiazem 125 MG in Sodium Chloride 0.9% 100 ML IVPB SCH (05:45)
[2022-08-11] MEDS: Metoprolol Tartrate 100 MG TAB PO SCH ×2 (09:35→21:35)
[2022-08-11] MEDS: Cholecalciferol 1,000 UNITS (25 MCG) TAB PO SCH (09:35)
[2022-08-11] MEDS: Saccharomyces boulardii 250 MG CAP PO SCH (09:35)
[2022-08-11] MEDS: Amlodipine 5 MG TAB PER TUBE SCH ×2 (09:36→22:25)
[2022-08-11] MEDS: Losartan 25 MG TAB PO SCH (09:41)
[2022-08-11] MEDS: busPIRone HCl 10 MG TAB PO SCH ×3 (09:42→21:35)
[2022-08-11] MEDS: Zinc Sulfate 220 MG CAP PO SCH (09:42)
[2022-08-11] MEDS: Insulin Glargine 30 UNITS/0.3 ML VIAL SC SCH ×2 (09:42→22:26)
[2022-08-11] MEDS: Empagliflozin 25 MG TAB PO SCH (09:43)
[2022-08-11] MEDS: GenTeal Tears Severe Dry Eye GEL 10 G L EYE SCH ×3 (09:43→21:35)
[2022-08-11] MEDS ORDERED: Iopamidol-370 76% 500 ML 1 ML ONE (09:45)
[2022-08-11] MEDS: Finasteride 5 MG TAB PO SCH (09:48)
[2022-08-11] MEDS: Acetaminophen 650 MG/20.3 ML UDCUP PER TUBE PRN (09:48)
[2022-08-11 11:37] LABS: Base Excess (BEa) 2.2 mEq/L (-2.0 to +3.0); CO2 Tension 32.5 mmHg (35.0-45.0); Calcium, Ionized (arterial) 1.15 mmol/L (1.12-1.30); Carboxyhemoglobin (COHb) 0.5 gm% (0.0-3.0); Hemoglobin (Hb) 10.8 g/dL (14.0-18.0); Potassium - ABG Lab 4.42 mmol/L (3.70-5.30)
[2022-08-11 11:46] LABS: O2 Tension (PaO2), arterial 41.1 mmHg (> 80.0)
[2022-08-11 11:46] LABS: Actual Bicarbonate (HCO3v) 25 mEq/L (22-28); Base Excess 1.3 mEq/L (-2.0 to +3.0); Calcium, Ionized (venous) 1.14 mmol/L (1.16-1.32); Chloride (VBG) 101 mmol/L (98-106); Hemoglobin (Hb) 11.5 g/dL (12.6-17.4); Potassium (VBG) 4.63 mmol/L (3.70-5.30); Sodium 135.1 mmol/L (133-146); pH (venous) 7.46 (7.32-7.43)
[2022-08-11 11:47] LABS: ALV-art Gradient 631.275 mmHg (0-20); Puncture Site RRA
[2022-08-11] MEDS ORDERED: NOREPINEPHRINE 8 MG/250 ML-D5W 250 ML IVPB PRN (12:04)
[2022-08-11] MEDS ORDERED: Sodium Chloride 0.9% 500 ML IV SCH (12:15)
[2022-08-11] MEDS: Alogliptin 6.25 MG TAB PO SCH (13:55)
[2022-08-11] MEDS: Lactated Ringer's 1,000 ML IV SCH (13:56)
[2022-08-11] MEDS: Mirtazapine 15 MG Soltab PO SCH (21:35)
[2022-08-11] MEDS: Atorvastatin Calcium 40 MG TAB PO SCH (21:35)
[2022-08-12] MEDS: Diltiazem 125 MG in Sodium Chloride 0.9% 100 ML IVPB SCH (01:39)
[2022-08-12] MEDS: Lactated Ringer's 1,000 ML IV SCH (01:39)
[2022-08-12 05:40] LABS: #Basophils 0.1 thou/uL (0.0-0.2); #Eosinphils 0.2 thou/uL (0.0-0.7); #Lymphocytes 1.6 thou/uL (1.20-3.40); #Monocytes 1.1 thou/uL (0.11-0.59); #Neutrophils 9.7 thou/uL (1.40-6.50); %Basophils 0.5 % (0.0-1.0); %Eosinophils 1.2 % (0.0-10.0); %Lymphocytes 12.4 % (21.0-51.0); %Monocytes 8.5 % (0.0-10.0); %Neutrophils 77.4 % (42.0-75.0); Hemoglobin 10.1 g/dL (14.0-18.0); Mean Corpuscular Hemoglobin 22.6 pg (27.0-31.0); Mean Corpuscular Volume 75.5 fl (78.0-98.0); Mean Platelet Volume 11.8 fL (7.4-10.4); Platelet Count 174 10x3/uL (130-400); RBC Distribution Width 17.9 % (11.5-14.5); Red Blood Cell (RBC) Count 4.45 mill/uL (4.70-6.10); White Blood Cell (WBC) Count 12.5 10x3/uL (4.8-10.8)
[2022-08-12 05:50] LABS: Anion Gap 14 mmol/L (10-20); BUN (Urea Nitrogen) 38 mg/dL (8.4-25.7); Calc. Creatinine Clearance 47 mL/min (70-130); Calcium 8.9 mg/dL (7.8-10.44); Carbon Dioxide 18 mmol/L (23-31); Chloride 110 mmol/L (98-107); Estimated GFR 44; Glucose 134 mg/dL (80-115); Potassium 4.4 mmol/L (3.5-5.1); Sodium 138 mmol/L (136-145)
[2022-08-12] MEDS: Metoprolol Tartrate 100 MG TAB PO SCH ×2 (08:36→20:59)
[2022-08-12] MEDS: busPIRone HCl 10 MG TAB PO SCH ×3 (08:36→20:58)
[2022-08-12] MEDS: Amlodipine 5 MG TAB PER TUBE SCH (08:36)
[2022-08-12] MEDS: Finasteride 5 MG TAB PO SCH (08:36)
[2022-08-12] MEDS: Cholecalciferol 1,000 UNITS (25 MCG) TAB PO SCH (08:36)
[2022-08-12] MEDS: Losartan 25 MG TAB PO SCH (08:36)
[2022-08-12] MEDS: Saccharomyces boulardii 250 MG CAP PO SCH (08:37)
[2022-08-12] MEDS: Insulin Glargine 30 UNITS/0.3 ML VIAL SC SCH ×2 (08:37→20:57)
[2022-08-12] MEDS: Pantoprazole 40 MG VIAL IVP SCH (08:37)
[2022-08-12] MEDS: Zinc Sulfate 220 MG CAP PO SCH (08:37)
[2022-08-12] MEDS: Empagliflozin 25 MG TAB PO SCH (08:38)
[2022-08-12] MEDS: GenTeal Tears Severe Dry Eye GEL 10 G L EYE SCH ×3 (08:38→20:57)
[2022-08-12] MEDS: Alogliptin 6.25 MG TAB PO SCH (08:38)
[2022-08-12] MEDS: HumaLOG 300 UNITS/3 ML VIAL SC PRN ×2 (10:21→16:32)
[2022-08-12] MEDS: Atorvastatin Calcium 40 MG TAB PO SCH (20:59)
[2022-08-12] MEDS: Mirtazapine 15 MG Soltab PO SCH (21:00)
[2022-08-13 04:08] LABS: #Basophils 0.1 thou/uL (0.0-0.2); #Eosinphils 0.3 thou/uL (0.0-0.7); #Neutrophils 9.3 thou/uL (1.40-6.50); %Basophils 0.5 % (0.0-1.0); %Eosinophils 2.5 % (0.0-10.0); %Monocytes 8.2 % (0.0-10.0); %Neutrophils 72.7 % (42.0-75.0); Hemoglobin 10.5 g/dL (14.0-18.0); Mean Corpuscular HGB CONC 29.9 g/dL (32.0-36.0); Mean Corpuscular Hemoglobin 22.8 pg (27.0-31.0); Mean Corpuscular Volume 76.3 fl (78.0-98.0); Mean Platelet Volume 10.3 fL (7.4-10.4); Platelet Count 283 10x3/uL (130-400); RBC Distribution Width 17.8 % (11.5-14.5); Red Blood Cell (RBC) Count 4.59 mill/uL (4.70-6.10); White Blood Cell (WBC) Count 12.7 10x3/uL (4.8-10.8)
[2022-08-13 04:23] LABS: Anion Gap 13 mmol/L (10-20); BUN (Urea Nitrogen) 37 mg/dL (8.4-25.7); Calc. Creatinine Clearance 50 mL/min (70-130); Calcium 9.2 mg/dL (7.8-10.44); Carbon Dioxide 24 mmol/L (23-31); Chloride 108 mmol/L (98-107); Estimated GFR 48; Glucose 89 mg/dL (80-115); Potassium 3.7 mmol/L (3.5-5.1); Sodium 141 mmol/L (136-145)
[2022-08-13] MEDS: Losartan 25 MG TAB PO SCH (08:09)
[2022-08-13] MEDS: Pantoprazole 40 MG VIAL IVP SCH (08:09)
[2022-08-13] MEDS: Empagliflozin 25 MG TAB PO SCH (08:09)
[2022-08-13] MEDS: Zinc Sulfate 220 MG CAP PO SCH (08:09)
[2022-08-13] MEDS: Finasteride 5 MG TAB PO SCH (08:09)
[2022-08-13] MEDS: Saccharomyces boulardii 250 MG CAP PO SCH (08:09)
[2022-08-13] MEDS: Metoprolol Tartrate 100 MG TAB PO SCH ×2 (08:09→21:42)
[2022-08-13] MEDS: Alogliptin 6.25 MG TAB PO SCH (08:10)
[2022-08-13] MEDS: busPIRone HCl 10 MG TAB PO SCH ×3 (08:12→21:43)
[2022-08-13] MEDS: GenTeal Tears Severe Dry Eye GEL 10 G L EYE SCH ×3 (09:28→21:43)
[2022-08-13] MEDS: Cholecalciferol 1,000 UNITS (25 MCG) TAB PO SCH (09:31)
[2022-08-13] MEDS: Insulin Glargine 30 UNITS/0.3 ML VIAL SC SCH (09:31)
[2022-08-13] MEDS: Atorvastatin Calcium 40 MG TAB PO SCH (21:42)
[2022-08-13] MEDS: Mirtazapine 15 MG Soltab PO SCH (21:42)
[2022-08-14 06:52] LABS: #Basophils 0.1 thou/uL (0.0-0.2); #Eosinphils 0.3 thou/uL (0.0-0.7); #Lymphocytes 1.4 thou/uL (1.20-3.40); #Monocytes 0.9 thou/uL (0.11-0.59); #Neutrophils 7.7 thou/uL (1.40-6.50); %Basophils 0.6 % (0.0-1.0); %Eosinophils 3.2 % (0.0-10.0); %Lymphocytes 13.8 % (21.0-51.0); %Monocytes 8.3 % (0.0-10.0); %Neutrophils 74.2 % (42.0-75.0); Hemoglobin 10.6 g/dL (14.0-18.0); Mean Corpuscular HGB CONC 29.3 g/dL (32.0-36.0); Mean Corpuscular Hemoglobin 22.4 pg (27.0-31.0); Mean Corpuscular Volume 76.3 fl (78.0-98.0); Mean Platelet Volume 10.2 fL (7.4-10.4); Platelet Count 276 10x3/uL (130-400); RBC Distribution Width 18.5 % (11.5-14.5); Red Blood Cell (RBC) Count 4.72 mill/uL (4.70-6.10); White Blood Cell (WBC) Count 10.4 10x3/uL (4.8-10.8)
[2022-08-14 07:08] LABS: Albumin 3.2 g/dL (3.4-4.8); Anion Gap 13 mmol/L (10-20); BUN (Urea Nitrogen) 45 mg/dL (8.4-25.7); BUN/Creatinine Ratio 27.11; Calc. Creatinine Clearance 49 mL/min (70-130); Calcium 9.1 mg/dL (7.8-10.44); Carbon Dioxide 26 mmol/L (23-31); Chloride 106 mmol/L (98-107); Estimated GFR 45; Glucose 203 mg/dL (80-115); Magnesium 2.5 mg/dL (1.6-2.6); Phosphorus 3.1 mg/dL (2.3-4.7); Potassium 4.2 mmol/L (3.5-5.1); Sodium 141 mmol/L (136-145)
[2022-08-14] MEDS: Pantoprazole 40 MG VIAL IVP SCH (08:55)
[2022-08-14] MEDS: Metoprolol Tartrate 100 MG TAB PO SCH ×2 (08:55→21:17)
[2022-08-14] MEDS: Empagliflozin 25 MG TAB PO SCH (08:55)
[2022-08-14] MEDS: Finasteride 5 MG TAB PO SCH (08:55)
[2022-08-14] MEDS: Alogliptin 6.25 MG TAB PO SCH (08:55)
[2022-08-14] MEDS: Insulin Glargine 30 UNITS/0.3 ML VIAL SC SCH (08:56)
[2022-08-14] MEDS: Cholecalciferol 1,000 UNITS (25 MCG) TAB PO SCH (08:56)
[2022-08-14] MEDS: Losartan 25 MG TAB PO SCH (08:56)
[2022-08-14] MEDS: busPIRone HCl 10 MG TAB PO SCH ×3 (08:56→21:17)
[2022-08-14] MEDS: Saccharomyces boulardii 250 MG CAP PO SCH (08:56)
[2022-08-14] MEDS: Zinc Sulfate 220 MG CAP PO SCH (08:56)
[2022-08-14] MEDS: GenTeal Tears Severe Dry Eye GEL 10 G L EYE SCH ×3 (08:56→21:17)
[2022-08-14] MEDS ORDERED: FLU VACC QS2022-23(65YR UP)/PF 240 MCG/0.7 ML SYRINGE IM ONE (09:00)
[2022-08-14] MEDS: HumaLOG 300 UNITS/3 ML VIAL SC PRN (17:16)
[2022-08-14] MEDS: Mirtazapine 15 MG Soltab PO SCH (21:17)
[2022-08-14] MEDS: Atorvastatin Calcium 40 MG TAB PO SCH (21:17)
[2022-08-15] MEDS: Metoprolol Tartrate 100 MG TAB PO SCH ×2 (08:41→21:43)
[2022-08-15] MEDS: Cholecalciferol 1,000 UNITS (25 MCG) TAB PO SCH (08:41)
[2022-08-15] MEDS: Zinc Sulfate 220 MG CAP PO SCH (08:41)
[2022-08-15] MEDS: Saccharomyces boulardii 250 MG CAP PO SCH (08:41)
[2022-08-15] MEDS: busPIRone HCl 10 MG TAB PO SCH ×3 (08:42→21:43)
[2022-08-15] MEDS: Finasteride 5 MG TAB PO SCH (08:42)
[2022-08-15] MEDS: Empagliflozin 25 MG TAB PO SCH (08:42)
[2022-08-15] MEDS: Alogliptin 6.25 MG TAB PO SCH (08:42)
[2022-08-15] MEDS: Insulin Glargine 30 UNITS/0.3 ML VIAL SC SCH (08:42)
[2022-08-15] MEDS: Losartan 25 MG TAB PO SCH (08:42)
[2022-08-15] MEDS: Pantoprazole 40 MG VIAL IVP SCH (08:43)
[2022-08-15] MEDS: GenTeal Tears Severe Dry Eye GEL 10 G L EYE SCH ×3 (08:53→20:43)
[2022-08-15] MEDS: HumaLOG 300 UNITS/3 ML VIAL SC PRN ×3 (12:31→21:04)
[2022-08-15] MEDS: Acetaminophen 650 MG/20.3 ML UDCUP PER TUBE PRN (17:16)
[2022-08-15] MEDS: Labetalol HCl 100 MG/20 ML VIAL SLOW IVP PRN (17:17)
[2022-08-15] MEDS: Mirtazapine 15 MG Soltab PO SCH (21:43)
[2022-08-15] MEDS: Atorvastatin Calcium 40 MG TAB PO SCH (21:43)
[2022-08-16] MEDS: Cholecalciferol 1,000 UNITS (25 MCG) TAB PO SCH (08:37)
[2022-08-16] MEDS: Pantoprazole 40 MG VIAL IVP SCH (08:37)
[2022-08-16] MEDS: Metoprolol Tartrate 100 MG TAB PO SCH ×2 (08:37→21:23)
[2022-08-16] MEDS: busPIRone HCl 10 MG TAB PO SCH ×3 (08:37→21:26)
[2022-08-16] MEDS: Saccharomyces boulardii 250 MG CAP PO SCH (08:37)
[2022-08-16] MEDS: Finasteride 5 MG TAB PO SCH (08:37)
[2022-08-16] MEDS: Empagliflozin 25 MG TAB PO SCH (08:37)
[2022-08-16] MEDS: Insulin Glargine 30 UNITS/0.3 ML VIAL SC SCH ×2 (08:38→21:28)
[2022-08-16] MEDS: Losartan 25 MG TAB PO SCH (08:38)
[2022-08-16] MEDS: Zinc Sulfate 220 MG CAP PO SCH (08:38)
[2022-08-16] MEDS: Alogliptin 6.25 MG TAB PO SCH (08:38)
[2022-08-16] MEDS: GenTeal Tears Severe Dry Eye GEL 10 G L EYE SCH ×3 (10:04→21:29)
[2022-08-16] MEDS: Labetalol HCl 100 MG/20 ML VIAL SLOW IVP PRN (15:37)
[2022-08-16 15:43] VITALS: BMI 25.9
[2022-08-16] MEDS: Atorvastatin Calcium 40 MG TAB PO SCH (21:23)
[2022-08-16] MEDS: Isosorbide Dinitrate 20 MG TAB PO SCH (21:29)
[2022-08-16] MEDS: Mirtazapine 15 MG Soltab PO SCH (21:32)
[2022-08-16] MEDS: HumaLOG 300 UNITS/3 ML VIAL SC PRN (21:49)
[2022-08-17] MEDS: HumaLOG 300 UNITS/3 ML VIAL SC PRN ×4 (05:52→21:21)
[2022-08-17] MEDS: Acetaminophen 650 MG/20.3 ML UDCUP PER TUBE PRN ×2 (07:20→18:31)
[2022-08-17 07:47] LABS: ALT (SGPT) 27 U/L (8-55); AST (SGOT) 27 U/L (5-34); Albumin 3.2 g/dL (3.4-4.8); Alkaline Phosphatase 86 U/L (40-110); Anion Gap 15 mmol/L (10-20); BUN (Urea Nitrogen) 54 mg/dL (8.4-25.7); Bilirubin, Total 0.4 mg/dL (0.2-1.2); Calc. Creatinine Clearance 40 mL/min (70-130); Calcium 8.8 mg/dL (7.8-10.44); Carbon Dioxide 25 mmol/L (23-31); Chloride 107 mmol/L (98-107); Estimated GFR 37; Globulin 3.2 g/dL (2.4-3.5); Glucose 230 mg/dL (80-115); Potassium 4.6 mmol/L (3.5-5.1); Protein, Total 6.4 g/dL (5.8-8.1); Sodium 142 mmol/L (136-145)
[2022-08-17 07:48] LABS: #Eosinphils 0.2 thou/uL (0.0-0.7); #Lymphocytes 1.7 thou/uL (1.20-3.40); #Monocytes 1.1 thou/uL (0.11-0.59); #Neutrophils 8.3 thou/uL (1.40-6.50); %Basophils 0.2 % (0.0-1.0); %Eosinophils 1.7 % (0.0-10.0); %Lymphocytes 15.2 % (21.0-51.0); %Monocytes 9.7 % (0.0-10.0); %Neutrophils 73.2 % (42.0-75.0); Hemoglobin 10.5 g/dL (14.0-18.0); Mean Corpuscular HGB CONC 29.6 g/dL (32.0-36.0); Mean Corpuscular Hemoglobin 22.5 pg (27.0-31.0); Mean Corpuscular Volume 75.9 fl (78.0-98.0); Mean Platelet Volume 10.6 fL (7.4-10.4); Platelet Count 281 10x3/uL (130-400); RBC Distribution Width 18.7 % (11.5-14.5); Red Blood Cell (RBC) Count 4.66 mill/uL (4.70-6.10); White Blood Cell (WBC) Count 11.3 10x3/uL (4.8-10.8)
[2022-08-17] MEDS: Cholecalciferol 1,000 UNITS (25 MCG) TAB PO SCH (09:40)
[2022-08-17] MEDS: Zinc Sulfate 220 MG CAP PO SCH (09:40)
[2022-08-17] MEDS: Saccharomyces boulardii 250 MG CAP PO SCH (09:40)
[2022-08-17] MEDS: Metoprolol Tartrate 100 MG TAB PO SCH ×2 (09:40→21:14)
[2022-08-17] MEDS: Losartan 25 MG TAB PO SCH (09:41)
[2022-08-17] MEDS: Alogliptin 6.25 MG TAB PO SCH (09:41)
[2022-08-17] MEDS: Empagliflozin 25 MG TAB PO SCH (09:41)
[2022-08-17] MEDS: busPIRone HCl 10 MG TAB PO SCH ×3 (09:41→21:14)
[2022-08-17] MEDS: Isosorbide Dinitrate 20 MG TAB PO SCH ×2 (09:42→21:15)
[2022-08-17] MEDS: Insulin Glargine 30 UNITS/0.3 ML VIAL SC SCH ×2 (09:43→21:17)
[2022-08-17] MEDS: Pantoprazole 40 MG VIAL IVP SCH (09:43)
[2022-08-17] MEDS: Finasteride 5 MG TAB PO SCH (09:43)
[2022-08-17] MEDS: GenTeal Tears Severe Dry Eye GEL 10 G L EYE SCH ×3 (09:44→21:15)
[2022-08-17] MEDS: Labetalol HCl 100 MG/20 ML VIAL SLOW IVP PRN (14:13)
[2022-08-17] MEDS: Budesonide 0.5 MG/2 ML NEB NEB SCH (19:11)
[2022-08-17] MEDS: Ipratropium Bromide 2.5 ml Neb NEB SCH ×2 (19:12→23:35)
[2022-08-17] MEDS: Mirtazapine 15 MG Soltab PO SCH (21:14)
[2022-08-17] MEDS: guaiFENesin/Codeine 200 mg/20 mg 10 ml Cup PER TUBE SCH (21:14)
[2022-08-17] MEDS: Atorvastatin Calcium 40 MG TAB PO SCH (21:14)
[2022-08-17 22:42] LABS: Anion Gap 17 mmol/L (10-20); BUN (Urea Nitrogen) 65 mg/dL (8.4-25.7); Calc. Creatinine Clearance 37 mL/min (70-130); Calcium 8.7 mg/dL (7.8-10.44); Carbon Dioxide 23 mmol/L (23-31); Chloride 105 mmol/L (98-107); Estimated GFR 34; Glucose 346 mg/dL (80-115); Magnesium 2.9 mg/dL (1.6-2.6); Potassium 5.1 mmol/L (3.5-5.1); Sodium 140 mmol/L (136-145)
[2022-08-18] MEDS ORDERED: Metoprolol Tartrate 5 MG/5 ML VIAL IVP SCH (02:00)
[2022-08-18] MEDS: Acetaminophen 650 MG/20.3 ML UDCUP PER TUBE PRN ×2 (03:14→20:02)
[2022-08-18 04:48] LABS: #Eosinphils 0.1 thou/uL (0.0-0.7); #Lymphocytes 1.6 thou/uL (1.20-3.40); #Monocytes 1.6 thou/uL (0.11-0.59); #Neutrophils 12.9 thou/uL (1.40-6.50); %Basophils 0.2 % (0.0-1.0); %Eosinophils 0.6 % (0.0-10.0); %Lymphocytes 9.9 % (21.0-51.0); %Monocytes 9.7 % (0.0-10.0); %Neutrophils 79.5 % (42.0-75.0); Hemoglobin 10.2 g/dL (14.0-18.0); Mean Corpuscular HGB CONC 30.3 g/dL (32.0-36.0); Mean Corpuscular Hemoglobin 22.8 pg (27.0-31.0); Mean Corpuscular Volume 75.1 fl (78.0-98.0); Mean Platelet Volume 10.7 fL (7.4-10.4); Platelet Count 270 10x3/uL (130-400); RBC Distribution Width 18.7 % (11.5-14.5); Red Blood Cell (RBC) Count 4.48 mill/uL (4.70-6.10); White Blood Cell (WBC) Count 16.2 10x3/uL (4.8-10.8)
[2022-08-18 05:10] LABS: Anion Gap 15 mmol/L (10-20); BUN (Urea Nitrogen) 62 mg/dL (8.4-25.7); Calc. Creatinine Clearance 39 mL/min (70-130); Calcium 8.7 mg/dL (7.8-10.44); Carbon Dioxide 26 mmol/L (23-31); Chloride 108 mmol/L (98-107); Estimated GFR 35; Glucose 209 mg/dL (80-115); Magnesium 2.8 mg/dL (1.6-2.6); Potassium 4.4 mmol/L (3.5-5.1); Sodium 145 mmol/L (136-145)
[2022-08-18] MEDS: Ipratropium Bromide 2.5 ml Neb NEB SCH ×3 (06:57→18:43)
[2022-08-18] MEDS: Budesonide 0.5 MG/2 ML NEB NEB SCH ×2 (06:59→18:44)
[2022-08-18] MEDS: Cholecalciferol 1,000 UNITS (25 MCG) TAB PO SCH (08:18)
[2022-08-18] MEDS: Zinc Sulfate 220 MG CAP PO SCH (08:18)
[2022-08-18] MEDS: guaiFENesin/Codeine 200 mg/20 mg 10 ml Cup PER TUBE SCH (08:18)
[2022-08-18] MEDS: Alogliptin 6.25 MG TAB PO SCH (08:18)
[2022-08-18] MEDS: Pantoprazole 40 MG VIAL IVP SCH (08:18)
[2022-08-18] MEDS: Metoprolol Tartrate 100 MG TAB PO SCH (08:18)
[2022-08-18] MEDS: Saccharomyces boulardii 250 MG CAP PO SCH (08:18)
[2022-08-18] MEDS: Finasteride 5 MG TAB PO SCH (08:19)
[2022-08-18] MEDS: Losartan 25 MG TAB PO SCH (08:19)
[2022-08-18] MEDS: busPIRone HCl 10 MG TAB PO SCH ×3 (08:19→19:50)
[2022-08-18] MEDS: Isosorbide Dinitrate 20 MG TAB PO SCH (08:19)
[2022-08-18] MEDS: GenTeal Tears Severe Dry Eye GEL 10 G L EYE SCH ×3 (08:20→19:56)
[2022-08-18] MEDS: Empagliflozin 25 MG TAB PO SCH (08:32)
[2022-08-18] MEDS: Insulin Glargine 30 UNITS/0.3 ML VIAL SC SCH ×2 (10:14→20:39)
[2022-08-18] MEDS ORDERED: Lactated Ringer's 1,000 ML IV SCH (10:15)
[2022-08-18] MEDS: HumaLOG 300 UNITS/3 ML VIAL SC PRN ×2 (11:00→17:55)
[2022-08-18] MEDS ORDERED: Amoxicillin/Potassium Clav 600 mg/5 ml Oral Suspension PER TUBE SCH ×2 (11:30→21:00)
[2022-08-18] MEDS ORDERED: Diltiazem 125 MG in Sodium Chloride 0.9% 100 ML IVPB SCH ×2 (14:45→19:30)
[2022-08-18] MEDS ORDERED: GUAIFENESIN SF SOLN 200 MG/10 ML UDCUP PER TUBE SCH (15:00)
[2022-08-18] MEDS ORDERED: Piperacillin/Tazobactam 3.375 GM in Sodium Chloride 0.9% 100 ML IVPB SCH ×2 (15:00→15:30)
[2022-08-18] MEDS: GUAIFENESIN SF SOLN 200 MG/10 ML UDCUP PER TUBE SCH ×2 (15:37→19:50)
[2022-08-18] MEDS ORDERED: Digoxin 0.5 MG/2 ML AMP SLOW IVP SCH (17:45)
[2022-08-18] MEDS ORDERED: Vancomycin 1.5 GRAM/300 ML BAG 1.5 GM in Premix Bag 1 BAG IVPB SCH (19:45)
[2022-08-18] MEDS: Atorvastatin Calcium 40 MG TAB PER TUBE SCH (19:49)
[2022-08-18] MEDS: Isosorbide Dinitrate 20 MG TAB PER TUBE SCH (19:49)
[2022-08-18] MEDS: Mirtazapine 15 MG Soltab PER TUBE SCH (19:50)
[2022-08-18] MEDS: Metoprolol Tartrate 100 MG TAB PER TUBE SCH (19:50)
[2022-08-18] MEDS: Piperacillin/Tazobactam 3.375 GM in Sodium Chloride 0.9% 100 ML IVPB SCH (20:35)
[2022-08-19] MEDS: Ipratropium Bromide 2.5 ml Neb NEB SCH ×4 (00:54→18:49)
[2022-08-19] MEDS: Piperacillin/Tazobactam 3.375 GM in Sodium Chloride 0.9% 100 ML IVPB SCH ×3 (04:09→21:20)
[2022-08-19 04:36] LABS: Anion Gap 13 mmol/L (10-20); BUN (Urea Nitrogen) 61 mg/dL (8.4-25.7); Calc. Creatinine Clearance 38 mL/min (70-130); Calcium 8.5 mg/dL (7.8-10.44); Carbon Dioxide 27 mmol/L (23-31); Chloride 112 mmol/L (98-107); Estimated GFR 31; Glucose 218 mg/dL (80-115); Potassium 4.5 mmol/L (3.5-5.1); Sodium 147 mmol/L (136-145)
[2022-08-19 04:57] LABS: Band 31 % (5-11); Lymphocytes 12 % (21-51); MDiff Complete? YES; Mean Corpuscular HGB CONC 29.7 g/dL (32.0-36.0); Mean Corpuscular Hemoglobin 22.9 pg (27.0-31.0); Mean Corpuscular Volume 76.9 fl (78.0-98.0); Microcytosis SLIGHT = 6-15 cells (100X) (0-5/hpf); Monocytes 10 % (0-10); Neutrophil 47 % (42-75); Platelet Count 213 10x3/uL (130-400); RBC Distribution Width 18.7 % (11.5-14.5); Red Blood Cell (RBC) Count 4.37 mill/uL (4.70-6.10); White Blood Cell (WBC) Count 12.1 10x3/uL (4.8-10.8)
[2022-08-19] MEDS: HumaLOG 300 UNITS/3 ML VIAL SC PRN (06:10)
[2022-08-19] MEDS: Budesonide 0.5 MG/2 ML NEB NEB SCH ×2 (07:18→18:50)
[2022-08-19] MEDS: Insulin Glargine 30 UNITS/0.3 ML VIAL SC SCH ×3 (09:14→22:09)
[2022-08-19] MEDS: Acetaminophen 650 MG/20.3 ML UDCUP PER TUBE PRN ×2 (09:14→13:58)
[2022-08-19] MEDS: GUAIFENESIN SF SOLN 200 MG/10 ML UDCUP PER TUBE SCH ×3 (09:14→21:52)
[2022-08-19] MEDS: Alogliptin 6.25 MG TAB PER TUBE SCH (09:15)
[2022-08-19] MEDS: Pantoprazole 40 MG VIAL IVP SCH (09:15)
[2022-08-19] MEDS: Saccharomyces boulardii 250 MG CAP PER TUBE SCH (09:15)
[2022-08-19] MEDS: Finasteride 5 MG TAB PO SCH (09:15)
[2022-08-19] MEDS: Isosorbide Dinitrate 20 MG TAB PER TUBE SCH ×2 (09:15→21:52)
[2022-08-19] MEDS: Metoprolol Tartrate 100 MG TAB PER TUBE SCH ×2 (09:16→21:52)
[2022-08-19] MEDS: Cholecalciferol 1,000 UNITS (25 MCG) TAB PER TUBE SCH (09:16)
[2022-08-19] MEDS: Losartan 25 MG TAB PER TUBE SCH (09:16)
[2022-08-19] MEDS: GenTeal Tears Severe Dry Eye GEL 10 G L EYE SCH ×3 (09:16→22:01)
[2022-08-19] MEDS: busPIRone HCl 10 MG TAB PO SCH ×3 (09:16→21:52)
[2022-08-19] MEDS: Zinc Sulfate 220 MG CAP PO SCH (09:16)
[2022-08-19] MEDS: Empagliflozin 25 MG TAB PO SCH (09:20)
[2022-08-19] MEDS ORDERED: Vancomycin 1 GM in Premix Bag 1 BAG IVPB SCH (20:00)
[2022-08-19] MEDS: Atorvastatin Calcium 40 MG TAB PER TUBE SCH (21:52)
[2022-08-19] MEDS: Mirtazapine 15 MG Soltab PER TUBE SCH (21:52)
[2022-08-20] MEDS: Ipratropium Bromide 2.5 ml Neb NEB SCH ×2 (00:35→07:06)
[2022-08-20] MEDS: Piperacillin/Tazobactam 3.375 GM in Sodium Chloride 0.9% 100 ML IVPB SCH ×2 (04:00→12:56)
[2022-08-20] MEDS: Budesonide 0.5 MG/2 ML NEB NEB SCH (07:11)
[2022-08-20] MEDS: Metoprolol Tartrate 100 MG TAB PER TUBE SCH (09:31)
[2022-08-20] MEDS: Saccharomyces boulardii 250 MG CAP PER TUBE SCH (09:31)
[2022-08-20] MEDS: Losartan 25 MG TAB PER TUBE SCH (09:32)
[2022-08-20] MEDS: busPIRone HCl 10 MG TAB PO SCH (09:32)
[2022-08-20] MEDS: Cholecalciferol 1,000 UNITS (25 MCG) TAB PER TUBE SCH (09:32)
[2022-08-20] MEDS: Isosorbide Dinitrate 20 MG TAB PER TUBE SCH (09:33)
[2022-08-20] MEDS: Zinc Sulfate 220 MG CAP PO SCH (09:33)
[2022-08-20] MEDS: Finasteride 5 MG TAB PO SCH (09:34)
[2022-08-20] MEDS: Pantoprazole 40 MG VIAL IVP SCH (09:34)
[2022-08-20] MEDS: GUAIFENESIN SF SOLN 200 MG/10 ML UDCUP PER TUBE SCH (09:34)
[2022-08-20] MEDS: GenTeal Tears Severe Dry Eye GEL 10 G L EYE SCH (09:35)
[2022-08-20] MEDS: Empagliflozin 25 MG TAB PO SCH (10:09)
[2022-08-20] MEDS: Alogliptin 6.25 MG TAB PER TUBE SCH (10:09)
[2022-08-20] MEDS: Insulin Glargine 30 UNITS/0.3 ML VIAL SC SCH (10:09)
[2022-08-20 15:30] VITALS: BP 145/69; TEMP 98.2
== END 2022-08-20 13:50 | disposition hospice, home (50) | DRG 64 ==
LOC: ERS 19:19 → NEURO 21:55 → CCU 08-11 03:37 → T4-A 08-13 10:11 → CCU 08-13 10:26 → T4-A 08-13 10:56 → 2NO 08-18 01:32
PROVIDERS: ADMIT Internal Medicine; ATTEND Internal Medicine
DX: I61.9 Nontraumatic intracerebral hemorrhage, unspecified (principal); G93.41 Metabolic encephalopathy; G93.6 Cerebral edema; J69.0 Pneumonitis due to inhalation of food and vomit; J96.01 Acute respiratory failure with hypoxia; I69.954 Hemiplegia and hemiparesis following unspecified cerebrovascular disease affecting left non-dominant side; I48.20 Chronic atrial fibrillation, unspecified; Z66 Do not resuscitate; Z51.5 Encounter for palliative care; I12.9 Hypertensive chronic kidney disease with stage 1 through stage 4 chronic kidney disease, or unspecified chronic kidney disease; E11.22 Type 2 diabetes mellitus with diabetic chronic kidney disease; E78.5 Hyperlipidemia, unspecified; N18.30 Chronic kidney disease, stage 3 unspecified; R13.12 Dysphagia, oropharyngeal phase; G93.89 Other specified disorders of brain; I65.21 Occlusion and stenosis of right carotid artery; I69.922 Dysarthria following unspecified cerebrovascular disease; I69.991 Dysphagia following unspecified cerebrovascular disease; Z95.0 Presence of cardiac pacemaker; Z79.82 Long term (current) use of aspirin; Z79.4 Long term (current) use of insulin; Z79.899 Other long term (current) drug therapy
CPT/HCPCS: 36415; 36416; 36600; 70450; 70498; 70551; 71045; 80048; 80053; 80069; 80306; 81001; 82550; 82553; 82805; 83605; 83690; 83735; 83880; 84100; 84145; 84443; 84484; 85025; 85610; 85730; 87040; 87811; 93005; 93010; 94640; 94660; 95712; 95816; 95819; 95957; 96365; 96366; 96374; C9113; J1160; J1815; J1956; J2543; J3370; J3480; J3490; J7050; J7120; J7626; Q9967; U0003; U0005